=== PATIENT | male | born 1950 | race Caucasian/White ===

== ENCOUNTER 2018-08-02 16:23 | Inpatient (IN) | payer MEDICARE, MEDICAID ==
[~2018-08-02] VITALS: Ht 172.7 cm; Wt 95.3 kg
[~2018-08-02 16:23] MED LIST: Aspirin PO; LISI-603 PO; OXYC30TA2 PO; PREG300C PO; TAMS-12 PO
--- NOTE | 2018-08-02 16:23 | NUR ---
PT BIBRA FROM HOME C/O L HIP PAIN S/P FALL TODAY, PT IS AAOX4, NOT IN RESPIRATORY DISTRESS, V/S STABLE, KEPT RESTED AND COMFORTABLE, WILL CONTINUE TO MONITOR.
--- NOTE | 2018-08-02 16:35 | NUR ---
PT SEEN AND EXAMINED BY DR. MEDRANO.
--- NOTE | 2018-08-02 16:50 | NUR ---
WHEELED TO RADIOLOGY FOR XRAY.
--- NOTE | 2018-08-02 17:20 | NUR ---
IV LINE ESTABLISHED LABS DRAWNED AND SENT TO LAB.
[2018-08-02 17:22] LABS: BASOPHILS # (AUTO) 0.1 /CMM (0.0-0.2); BASOPHILS % (AUTO) 0.7 % (0.0-2.0); EOSINOPHILS % (AUTO) 0.3 % (0.0-6.0); HEMATOCRIT 31 % (39-51); HEMOGLOBIN 10.2 g/dL (13.5-17.5); LYMPHOCYTES # (AUTO) 1.1 /CMM (0.8-4.8); LYMPHOCYTES % (AUTO) 10.2 % (20.0-44.0); MEAN CORPUSCULAR HGB CONC 33 g/dl (31.0-36.0); MEAN CORPUSCULAR VOLUME 85 fL (80-96); MONOCYTES # (AUTO) 0.6 /CMM (0.1-1.30); MONOCYTES % (AUTO) 5.5 % (2.0-12.0); NEUTROPHILS # (AUTO) 9.2 /CMM (1.8-8.9); NEUTROPHILS % (AUTO) 83.3 % (43.0-81.0); PLATELET COUNT (AUTO) 415 /CMM (150-450); RED BLOOD CELL COUNT(AUTO) 3.65 MIL/uL (4.5-6.0); WHITE BLOOD COUNT (AUTO) 11.1 K/uL (4.3-11.0)
[2018-08-02 17:29] LABS: CALCIUM, SERUM 8.7 mg/dL (8.5-10.1); CREATININE 1.3 mg/dL (0.6-1.3); POTASSIUM 4.4 mmol/L (3.5-5.1)
[2018-08-02] MEDS ORDERED: HYDROMORPHONE 1 MG/1 ML DISP.SYRIN IV ONE (17:30)
[2018-08-02] MEDS ORDERED: ONDANSETRON HCL/PF - ER 4 MG/2 ML VIAL IV ONE (17:30)
[2018-08-02] MEDS ORDERED: HYDROMORPHONE 1 MG/1 ML DISP.SYRIN ONE (17:36)
[2018-08-02] MEDS ORDERED: ONDANSETRON HCL/PF 4 MG/2 ML VIAL ONE (17:36)
--- NOTE | 2018-08-02 18:15 | NUR ---
LAMINATION OPERATOR AT BEDSIDE FOR XRAY.
--- NOTE | 2018-08-02 18:50 | NUR ---
CHRISTOPHER AT BEDSIDE FOR EVAL.
[2018-08-02] MEDS ORDERED: MAG HYDROX/AL HYDROX/SIMETH 30 ML UDC PO PRN (19:00)
[2018-08-02] MEDS ORDERED: ONDANSETRON HCL/PF 4 MG/2 ML VIAL IVP PRN (19:00)
[2018-08-02] MEDS ORDERED: HYDROCODONE/APAP 5/325MG 1 EACH TABLET PO PRN (19:00)
[2018-08-02] MEDS ORDERED: MAGNESIUM HYDROXIDE 30 ML UDC PO PRN (19:00)
[2018-08-02] MEDS ORDERED: ACETAMINOPHEN 325 MG TABLET PO PRN (19:00)
[2018-08-02] MEDS ORDERED: Z GUARD REMEDY 2 OZ OINT TP PRN (19:00)
--- NOTE | 2018-08-02 19:17 | NUR ---
REPORT GIVEN TO YARITZA WATT FOR ANN.
--- NOTE | 2018-08-02 20:14 | NUR ---
REPORT GIVEN TO YARITZA GUZMÁN FOR ANN
[2018-08-02 21:00] VITALS: BP 133/60
--- NOTE | 2018-08-02 21:00 | NUR ---
RECEIVED PT IN BED AWAKE AND ALERT W/ AT THE BED SIDE. BREATHING EVENLY. NO SOB. NAD. SKIN WARM AND DRY . W/ ONGOING C/O L HIP PAIN. VSS. MEDICAL HISTORY WERE OBTAINED FROM THE PT AND THE . ALL NEEDS ATTENDED. BED LOW LOCKED. SRX2. CALL LIGHT WITHIN REACH. WILL CONT TO MONITOR AND WILL F/U WITH MD'S ORDERS.
[2018-08-02] MEDS: HYDROMORPHONE INJ 2 MG/ML DISP.SYRIN IV PRN (22:20)
--- NOTE | 2018-08-02 22:20 | NUR ---
DILAUDID 1MG GIVEN ORDERED PER PT'S REQUEST FOR C/O L HIP PAIN , WILL CONT TO MONITOR
[2018-08-02] MEDS: IV NS 0.9% 1,000 ML IV PRN (23:11)
[2018-08-03] VITALS (10 sets, daily range): BP systolic 127–159; BP diastolic 62–96
--- NOTE | 2018-08-03 01:58 | NUR ---
PT WITH C/O L HIP PAIN. NORCO 5-325MG WAS OFFERED. PT REFUSED. EXPLAINED TO THE PT THAT HE IS NOT DUE FOR ANOTHER DOSE OF DILAUDID. DR BUCHANAN MADE AWARE WITH A NEW ORDER FOR NORCO 10/325 Q6HRS PRN. NEW ORDER NOTED.
[2018-08-03] MEDS: HYDROMORPHONE INJ 2 MG/ML DISP.SYRIN IV PRN ×5 (02:30→17:52)
--- NOTE | 2018-08-03 02:30 | NUR ---
DILAUDID 1MG GIVEN ORDERED PER PT'S REQUEST FOR C/O SEVERE L HIP PAIN , WILL CONT TO MONITOR
[2018-08-03] MEDS: HYDROCODONE/APAP 10/325MG 1 EA TABLET PO PRN ×2 (05:06→16:46)
--- NOTE | 2018-08-03 05:43 | NUR ---
WITH C/O L HIP PAIN. NORCO 10 WITH A SIP OF WATER GIVEN. WILL CONT TO MONITOR ,
[2018-08-03 06:36] LABS: BASOPHILS % (AUTO) 0.3 % (0.0-2.0); EOSINOPHILS % (AUTO) 0.7 % (0.0-6.0); HEMATOCRIT 30 % (39-51); HEMOGLOBIN 10.2 g/dL (13.5-17.5); LYMPHOCYTES % (AUTO) 11.9 % (20.0-44.0); MEAN CORPUSCULAR HGB CONC 34 g/dl (31.0-36.0); MEAN CORPUSCULAR VOLUME 84 fL (80-96); MONOCYTES # (AUTO) 0.6 /CMM (0.1-1.30); MONOCYTES % (AUTO) 6.7 % (2.0-12.0); NEUTROPHILS # (AUTO) 6.9 /CMM (1.8-8.9); NEUTROPHILS % (AUTO) 80.4 % (43.0-81.0); PLATELET COUNT (AUTO) 374 /CMM (150-450); RED BLOOD CELL COUNT(AUTO) 3.61 MIL/uL (4.5-6.0); WHITE BLOOD COUNT (AUTO) 8.5 K/uL (4.3-11.0)
[2018-08-03 06:54] LABS: CALCIUM, SERUM 8.7 mg/dL (8.5-10.1); MAGNESIUM 1.7 mg/dL (1.8-2.4); PHOSPHORUS 2.9 mg/dL (2.5-4.9); POTASSIUM 4.1 mmol/L (3.5-5.1); THYROID STIMULATING HORMONE 0.892 uIU/mL (0.358-3.74)
--- NOTE | 2018-08-03 06:58 | NUR ---
PT IN BED AWAKE AND ALERT. BREATHING EVENLY. PAIN MEDICATIONS GIVEN ORDERED PER PT'S REQUEST. NEEDS ATTENDED. CLEANED AND DRIED. BED LOW LOCKED. CALL LIGHT WITHIN REACH. REPORT GIVEN TO YARITZA AGUIAR. FOR ANN.
--- NOTE | 2018-08-03 07:22 | NUR ---
MS RN OPENING NOTE RECEIVED PT IN BED, ALERT AND ORIENTED X4. DENIES CHEST PAIN, SOB, N/V. BREATHING IS EVEN AND UNLABORED ON ROOM AIR. PT IS HERE S/P FALL WITH LEFT HIP DISLOCATION. PER PT HE WAS SENT IN BY TO RECEIVE SURGERY TODAY HOWEVER PT IS NOT ON SCHEDULE FOR SURGERY AT THIS TIME, WILL FOLLOW UP WITH ORTHO GROUP. NEUROVASCULAR STATUS IS INTACT AT THIS TIME. RIGHT AC #18G IV IS INFUSING NS @ 75ML/HR WITHOUT REDNESS OR SWELLING. NPO STATUS MAINTAINED. ALL NEEDS ATTENDED TO. BED IS LOCKED AND IN LOWEST POSITION, SIDE RAILS UP X2, BED ALARM ON, CALL LIGHT WITHIN REACH.
[2018-08-03] MEDS ORDERED: TAMS-12 PO (08:22)
[2018-08-03] MEDS ORDERED: SENN-175 PO (08:22)
[2018-08-03] MEDS ORDERED: OXYC80TA40 PO (08:22)
[2018-08-03] MEDS ORDERED: ZOLP10TA6 PO (08:22)
[2018-08-03] MEDS ORDERED: TIZA4TAB4 PO (08:22)
[2018-08-03] MEDS: IV NS 0.9% 1,000 ML IV PRN (09:49)
--- NOTE | 2018-08-03 10:30 | NUR ---
MS RN NOTE 16F MENESES INSERTED ORDERED. PT TOLERATED PROCEDURE WELL.
[2018-08-03] MEDS ORDERED: ZOLPIDEM TARTRATE 10 MG TABLET PO PRN (11:00)
[2018-08-03] MEDS ORDERED: SENNOSIDES 8.6 MG TABLET PO PRN (11:00)
[2018-08-03] MEDS ORDERED: TIZANIDINE HCL 4 MG TABLET PO PRN (11:00)
[2018-08-03] MEDS: LISINOPRIL (20MG) 20 MG TABLET PO SCH (11:10)
[2018-08-03] MEDS ORDERED: PREGABALIN 100 MG CAPSULE PO SCH (11:30)
[2018-08-03] MEDS ORDERED: GLYCOPYRROLATE 0.2 MG/ML VIAL ONE ×2 (12:18→12:19)
[2018-08-03] MEDS ORDERED: ROCURONIUM BROMIDE 50 MG/5 ML ONE (12:19)
[2018-08-03] MEDS ORDERED: HYDROMORPHONE INJ 2 MG/ML DISP.SYRIN ONE (12:19)
--- NOTE | 2018-08-03 12:27 | NUR ---
MS RN PT OFF UNIT PT OFF UNIT FOR SURGERY. CONSENTS SIGNED AND PLACED IN CHART. OR CHECK LIST COMPLETED. RIGHT AC #18G IV IS PATENT, CLEAN , DRY AND INTACT. AT THE BEDSIDE.
[2018-08-03] MEDS ORDERED: BACITRACIN 50000 UNITS/VIAL ONE ×2 (13:14→13:26)
[2018-08-03] MEDS ORDERED: MEPERIDINE HCL/PF 100 MG/ML DISP.SYRIN ONE (14:06)
[2018-08-03] MEDS ORDERED: HYDROMORPHONE 1 MG/1 ML DISP.SYRIN ONE ×2 (14:24→14:55)
[2018-08-03] MEDS ORDERED: FENTANYL PF 100MCG/2ML AMPUL ONE (14:36)
[2018-08-03] MEDS ORDERED: MIDAZOLAM HCL 2 MG/2ML VIAL ONE (14:46)
--- NOTE | 2018-08-03 15:36 | NUR ---
MS RN NOTE PT BACK ON UNIT FROM SURGERY. POST OP ORDERS OBTAINED AND INITIATED. VS INITIATED PER PROTOCOL. PT A/OX4 AND REQUESTING PAIN MEDICATION AT THIS TIME.
--- NOTE | 2018-08-03 15:50 | NUR ---
MS RN NOTE HOME MEDICATION LYRICA OBTAINED AND DROPPED OFF AT PHARMACY PER PROTOCOL.
--- NOTE | 2018-08-03 15:56 | NUR ---
MS RN NOTE PER CHARLOTTE BRITT, FRANCHESKA OKAY FOR ONE TIME ORDER OF LYRICA 300MG PO
--- NOTE | 2018-08-03 16:41 | NUR ---
MS RN NOTE PER PHARMACY THEY WILL SEND LYRICA SHORTLY.
[2018-08-03] MEDS: LYRICA 300 MG PO SCH ×2 (16:46→21:00)
[2018-08-03] MEDS: Magnesium 1GM/D5W 100ML PREMIX 100 ML IV SCH ×2 (16:46→17:52)
--- NOTE | 2018-08-03 17:00 | NUR ---
MS RN NOTE PT REFUSING SCDS AT THIS TIME, RISKS AND BENEFITS EXPLAINED, PT STATES ITS UNCOMFORTABLE AND IS REFUSING AT THIS TIME.
[2018-08-03] MEDS: IV LR 1000 ML 1,000 ML IV PRN (18:23)
[2018-08-03] MEDS ORDERED: COLACE 250 MG CAPSULE PO PRN (18:30)
[2018-08-03] MEDS ORDERED: TYLENOL 650 MG TABLET PO PRN (18:30)
[2018-08-03] MEDS ORDERED: SENOKOT 8.6 MG TABLET PO PRN (18:30)
[2018-08-03] MEDS ORDERED: DULCOLAX 10 MG/SUPP.RECT RC PRN (18:30)
--- NOTE | 2018-08-03 18:30 | NUR ---
MS RN CLOSING NOTE PT IN BED, RESTING WITH EYES CLOSED AND EASILY AROUSABLE. PT IS A/OX4, DENIES CHEST PAIN, SOB, N/V. BREATHING IS EVEN AND UNLABORED ON ROOM AIR. PT IS STATUS POST REVISION OF LEFT HIP ARTHROPLASTY WITH TODAY. PT RATES PAIN 7/10 AT THE LEFT HIP, ADMINISTERED DILAUDID 1MG @ 1752 ORDERED. NEUROVASCULAR STATUS AT BASELINE. RIGHT AC #18G IV IS INFUSING ORDERED WITHOUT REDNESS OR SWELLING. MENESES CATHETER NOTED TO BE DRAINING CLEAR, YELLOW URINE. PT STILL REFUSING SCDS AT THIS TIME. ABDUCTOR PILLOW IN PLACE. ALL NEEDS ATTENDED TO. BED IS LOCKED AND IN LOWEST POSITION, SIDE RAILS UP X2, BED ALARM ON, CALL LIGHT AND POSSESSIONS WITHIN REACH.
--- NOTE | 2018-08-03 19:30 | NUR ---
MS/RN OPENING NOTES PT RECEIVED AWAKE, A/OX3. ON ROOM AIR, BREATHING EVEN AND UNLABORED. DENIES SOB, IN NO ACUTE DISTRESS. NOTES PAIN 10/22 TO LEFT HIP, S/P SURGERY TODAY. DRESSING C/D/I. PER PT -10/22 IS A TOLERABLE LEVEL OF PAIN AT THIS TIME. MENESES IN PLACE AND DRAINING TO GRAVITY. IV TO RAC PATENT AND INTACT RUNNING ORDERED. HOB SEMI FOWLERS. BED IN LOW/LOCKED POSITION WITH CALL LIGHT IN REACH. BILATERAL UPPER SIDE RAILS IN PLACE. WILL CONTINUE TO MONITOR
--- NOTE | 2018-08-03 19:48 | NUR ---
SPOKE TO PHARMACY, ASKED IF THEY WANT ME TO ADMINISTER 2100 LYRICA WHICH IS Q12H OR TO SKIP DOSE FOR TONIGHT. PER PHARMACY, CHARLOTTE BRITT NP WANTS TO ADMINISTER 2100 DOSE. PHARMACY WITH WRITE A NOTE ON HER END WELL REGARDING THIS.
[2018-08-03] MEDS: HYDROMORPHONE 1 MG/1 ML DISP.SYRIN IV PRN ×2 (20:50→23:54)
--- NOTE | 2018-08-03 20:52 | NUR ---
MS/RN NOTES PT C/O 12/22 LEFT HIP PAIN. ADMINISTERED PRN DILAUDID ORDERED. SCD PUMPS TURNED ON
--- NOTE | 2018-08-03 20:57 | NUR ---
PT LAYING ON SIDE, ABDUCTOR PILLOW OUT OF POSITION. ATTEMPTED TO REPOSITION AND ADJUST ABDUCTOR PILLOW. PT REFUSING SAYING HE IS ALREADY IN "TOO MUCH PAIN". EDUCATED ON RISKS/BENEFITS OF PROPER POSITIONING/ALIGNMENT WITH ABDUCTOR PILLOW FOR HEALING HOWEVER PT BECOMING AGITATED AND REFUSING TO BE TOUCHED AT THIS TIME.
--- NOTE | 2018-08-03 21:29 | NUR ---
Spoke with patient, he is alert and pleasant. S/p left hip with revision left total hip arthroplasty done today. States he lives at home with his in a single level home in [place]. His grandson lives next door who can assist patient as needed. Prior to admission, he was ambulating with a walker. He has DME from previous hip surgery - walker, shower chair and wheelchair. Patient does not want SNF placement. He prefer to return home with homehealth once discharge. His will provide ride. Addendum: 08/03/18 at 2130 by RAMYA BOWMAN RN Amended: Links added.
[2018-08-03] MEDS: ANCEF 1 G in IV D5W 50 ML IV SCH (21:57)
--- NOTE | 2018-08-03 22:26 | NUR ---
SPOKE TO [facility], NORY REGARDING LYRICA. PER NORY, TOO SOON TO ADMINISTER AND NO NOTES WERE MADE FROM IN HOUSE PHARMACY VERIFYING OKAY TO GIVE 2100 DOSE. PT AT RISK FOR TOXICITY IF ADMINISTERED NOW AND RECOMMENDED TO HOLD DOSE AT THIS TIME.
[2018-08-03] MEDS: HYDROCODONE/APAP 5/325MG 1 EACH TABLET PO PRN (22:53)
--- NOTE | 2018-08-03 23:57 | NUR ---
PT WITH C/O 8/10 PAIN TO LEFT HIP. ADMINISTERED PRN DILAUDID ORDERED. ASKED TO CHARGE BLACK IPHONE AT NURSING STATION. NO OTHER NEEDS EXPRESSED AT THIS TIME. REFUSED TO REPOSITION. WILL CONTINUE TO MONITOR
--- NOTE | 2018-08-04 00:04 | NUR ---
PT REFUSING TO HAVE SCD'S ON AT THIS TIME DESPITE EDUCATION OF RISKS/BENEFITS X3. WILL REPLACE SCD PUMPS PT PERMITS.
--- NOTE | 2018-08-04 01:17 | NUR ---
PT C/O NAUSEA. OBTAINED ORDER FROM DR. BUCHANAN FOR ZOFRAN 4MG IV Q6H PRN. ADMINISTERED ORDERED. PT REPOSITIONED AND ABDUCTOR PILLOW ADJUSTED TO PROPER POSITION. NO OTHER NEEDS EXPRESSED AT THIS TIME.
[2018-08-04] MEDS ORDERED: ONDANSETRON HCL/PF 4 MG/2 ML VIAL IV PRN ×2 (01:30→09:00)
[2018-08-04] MEDS: HYDROMORPHONE 1 MG/1 ML DISP.SYRIN IV PRN ×3 (02:45→07:10)
[2018-08-04] MEDS: ANCEF 1 G in IV D5W 50 ML IV SCH (05:12)
[2018-08-04] MEDS: IV LR 1000 ML 1,000 ML IV PRN ×2 (05:12→15:44)
--- NOTE | 2018-08-04 06:47 | NUR ---
MS/RN CLOSING NOTES PT OPENS EYES SPONTANEOUSLY. REMAINS ON ROOM AIR, BREATHING EVEN AND UNLABORED. DENIES SOB. IN NO ACUTE DISTRESS. PAIN TOLERABLE AT 6/10 TO LEFT HIP. DRESSING REMAINS C/D/I. ABDUCTOR PILLOW IN PROPER ALIGNMENT. IV TO RAC PATENT AND INTACT RUNNING IVF ORDERED. MENESES IN PLACE AND DRAINING TO GRAVITY. PRN PAIN MEDS ADMINISTERED ORDERED. KEPT PT COMFORTABLE POSSIBLE. TURNED/REPOSITIONED PT TOLERATED. PT REFUSING SCD PUMPS AT THIS TIME. HOB ELEVATED. BILATERAL UPPER SIDE RAILS IN PLACE. ENCOURAGED PO INTAKE TOLERATED. REPORTS POOR APPETITE AND SOME NAUSEA WHICH HAS RESOLVED NOW. NO SIGNIFICANT CHANGES OVERNIGHT. ALL NEEDS MET. BED REMAINS IN LOW/LOCKED POSITION WITH CALL LIGHT IN REACH. WILL ENDORSE TO DAY SHIFT YARITZA JUAREZ. Addendum: 08/04/18 at 0706 by PADILLA AVUGHAN RN IPHONE RETURNED TO PT
--- NOTE | 2018-08-04 07:15 | NUR ---
RN NOTES PATIENT A/OX3, BREATHING EVEN AND UNLABORED, NO SOB NOTED, ABDUCTOR PILLOW IN PLACED. PATIENT REFUSING TO HAVE SCD BECAUSE IT IRRITATES HIM. EXPLAINED TO PATIENT IMPORTANCE OF TURNING AND REPOSITIONING EVERY 2 HOURS, FOR SKIN MANAGEMENT. PATIENT VERBALIZED UNDERSTANDING. NEEDS ATTENDED, CALL LIGHT WITHIN REACH, WILL CONTINUE TO MONITOR.
[2018-08-04 07:32] LABS: BASOPHILS % (AUTO) 0.3 % (0.0-2.0); EOSINOPHILS % (AUTO) 0.1 % (0.0-6.0); HEMATOCRIT 27 % (39-51); HEMOGLOBIN 8.9 g/dL (13.5-17.5); LYMPHOCYTES # (AUTO) 1.3 /CMM (0.8-4.8); LYMPHOCYTES % (AUTO) 11.2 % (20.0-44.0); MEAN CORPUSCULAR HGB CONC 33 g/dl (31.0-36.0); MEAN CORPUSCULAR VOLUME 84 fL (80-96); MONOCYTES # (AUTO) 0.8 /CMM (0.1-1.30); MONOCYTES % (AUTO) 7.3 % (2.0-12.0); NEUTROPHILS # (AUTO) 9.3 /CMM (1.8-8.9); NEUTROPHILS % (AUTO) 81.1 % (43.0-81.0); PLATELET COUNT (AUTO) 339 /CMM (150-450); RED BLOOD CELL COUNT(AUTO) 3.23 MIL/uL (4.5-6.0); WHITE BLOOD COUNT (AUTO) 11.4 K/uL (4.3-11.0)
[2018-08-04 07:38] LABS: CALCIUM, SERUM 8.8 mg/dL (8.5-10.1); CREATININE 1.1 mg/dL (0.6-1.3); POTASSIUM 4.6 mmol/L (3.5-5.1)
[2018-08-04 08:00] VITALS: BP 129/72
--- NOTE | 2018-08-04 08:15 | NUR ---
RN NOTES ENDORSED TO FELIPE VIGIL FOR CONTINUITY OF CARE.
[2018-08-04] MEDS: TAMSULOSIN 0.4 MG CAP.SR.24H PO SCH (08:29)
[2018-08-04] MEDS: LISINOPRIL (20MG) 20 MG TABLET PO SCH (08:30)
[2018-08-04] MEDS: LYRICA 300 MG PO SCH ×2 (08:31→21:31)
[2018-08-04] MEDS: HYDROCODONE/APAP 5/325MG 1 EACH TABLET PO PRN (08:39)
[2018-08-04] MEDS ORDERED: CLONIDINE HCL 0.1 MG TABLET PO PRN (09:00)
[2018-08-04] MEDS ORDERED: HYDROMORPHONE MDV 30 MG in IV NS 0.9% 15 ML, PCA TOTAL VOLUME 1 BAG IV PRN ×6 (09:00→09:30)
[2018-08-04] MEDS ORDERED: diphenhydrAMINE HCL 25 MG CAPSULE PO PRN (09:00)
[2018-08-04] MEDS ORDERED: oxyCODONE IR immediate release 5 MG PO PRN (09:00)
[2018-08-04] MEDS ORDERED: MAG HYDROX/AL HYDROX/SIMETH 30 ML UDC PO PRN (09:00)
[2018-08-04] MEDS: FAMOTIDINE (20 MG) 20 MG TABLET PO SCH ×2 (09:25→21:29)
[2018-08-04] MEDS: DOCUSATE SODIUM 100 MG CAPSULE PO SCH ×2 (09:25→16:25)
[2018-08-04] MEDS: oxyCODONE HCL SR 20MG TAB.SR.12H PO SCH ×3 (09:26→21:31)
[2018-08-04] MEDS: SENNOSIDES 8.6 MG TABLET PO SCH ×2 (09:27→16:25)
[2018-08-04] MEDS ORDERED: NALOXONE HCL 0.4 MG/ML AMPUL IV PRN (09:30)
[2018-08-04] MEDS ORDERED: KEY,NONCONTROL,TO KEEP IN PYXI 1 EA MC ONE ×2 (11:21→14:20)
[2018-08-04 15:39] VITALS: BP 129/72
[2018-08-04 16:00] VITALS: BP 109/60
[2018-08-04] MEDS: RIVAROXABAN 10 MG TABLET PO SCH (16:26)
[2018-08-04] MEDS ORDERED: PREGABALIN 25 MG CAPSULE PO SCH (17:00)
--- NOTE | 2018-08-04 18:06 | NUR ---
CLOSING PT OPENS EYES SPONTANEOUSLY. REMAINS ON ROOM AIR, BREATHING EVEN AND UNLABORED. DENIES SOB. IN NO ACUTE DISTRESS. PAIN TOLERABLE AT 2/10 TO LEFT HIP. DRESSING REMAINS C/D/I. ABDUCTOR PILLOW IN PROPER ALIGNMENT. IV TO RAC CHAUFFEUR MOTORBUS DILAUDID AND L WRIST PATENT AND INTACT RUNNING IVF RINGER'S LACTATE AT 100ML/HR ORDERED. MENESES D'C'D PAIN MEDS ADMINISTERED ORDERED PER MD ESTEVES. KEPT PT COMFORTABLE POSSIBLE. TURNED/REPOSITIONED PT TOLERATED. PT ON SCD PUMPS AT THIS TIME. HOB ELEVATED. BILATERAL UPPER SIDE RAILS IN PLACE. ENCOURAGED PO INTAKE TOLERATED. PT EATING WELL ALL NEEDS MET. BED REMAINS IN LOW/LOCKED POSITION WITH CALL LIGHT IN REACH. WILL ENDORSE TO PM SHIFT RN
--- NOTE | 2018-08-04 19:15 | NUR ---
MASTER RIGGER hand off Dilaudid on demand. 1914 25.6 mg left in bag. On demand 0.4 Bolus q 15mins. O2 [id number]% resp even and unlabored. Denies of any distress.
--- NOTE | 2018-08-04 19:16 | NUR ---
LANDSCAPE ARCHITECTURE PROFESSOR HAND OFF BEGINNING VOLUME 30 ML TOTAL GIVEN 4.4 ML 25.6 ML LEFT.
[2018-08-04 20:00] VITALS: BP 100/59
[2018-08-05] MEDS: AMBIEN 5 MG TABLET PO PRN ×2 (01:05→23:08)
[2018-08-05] MEDS ORDERED: oxyCODONE HCL SR 20MG TAB.SR.12H PO ONE ×3 (05:20→05:24)
[2018-08-05] MEDS: oxyCODONE HCL SR 20MG TAB.SR.12H PO SCH ×3 (05:31→22:19)
--- NOTE | 2018-08-05 05:41 | NUR ---
Note: Oxycodone 80mg sr scheduled dose for 5am No enough oxycodone here on the floor Notified Charge Nurse . Told to go to 1st floor [facility] to slat pickler the medication. Charge nurse from [facility] removed the Oxycodone 20mg one at a time x2 then on third time was able to remove 40mg by changing the amount. When I administered the Oxcodone 80mg 3 20 mg Oxycodone were highlighted to administered along with my prior order of Oxcodone 80mg at 0500. This is the order I administered from. Notified Charge Nurse. I was given the [facility] [phone]. After explaining what happened to the Rx he stated chart what happen in the chart. Fyi currently the three Oxcodone are stilll highlighted to give.
[2018-08-05] MEDS ORDERED: KEY,NONCONTROL,TO KEEP IN PYXI 1 EA MC ONE ×4 (06:43→16:05)
--- NOTE | 2018-08-05 06:54 | NUR ---
Lying in bed resting comfortably on r/a Cont Pulse oxy 99% Abd pillow between pts legs and strapped. Left hip dressing C/D/I/ Diludid RETAIL OFFICE ASSOCIATE cont infusing on demand without difficulty L.R. infusing at 100 cc hrto R AC. pt able to void in urinal after 200 after yesterday F/c d/c. Siderail up Call light and housekeeper pump within reach. Slept 4.5 hour after being given ambien at 0100.
--- NOTE | 2018-08-05 07:59 | NUR ---
MS RN OPENING NOTES RECEIVED PT IN BED, AWAKE, A/O X4. HOB ELEVATED. TOLERATING RA, WITH NO ACUTE SIGNS OF RESPIRATORY DISTRESS. DENIES PAIN AT THIS MOMENT. IVF LR AT 100 ML/HR TO RAC G18, INTACT AND INFUSING WELL. MEASURER MACHINE DILAUDID 0.4MG WITH LOCKOUT 12 MINS AND 1HR LIMIT 2MG NOTED WELL. PT ABLE TO URINATE ON THE URINAL. ABDUCTOR PILLOW BETWEEN LEGS IN PLACE NOTED. PT HAS NO CONCERNS OR QUESTIONS AT THIS TIME. AND STATED HE WANTS TO GO HOME TODAY WELL IF HE CAN. PT'S BED KEPT IN LOWEST LOCKED POSITION WITH SR X2. WILL CONTINUE PLAN OF CARE.
[2018-08-05 08:00] VITALS: BP 112/60
[2018-08-05] MEDS: SENNOSIDES 8.6 MG TABLET PO SCH ×2 (08:42→16:08)
[2018-08-05] MEDS: FAMOTIDINE (20 MG) 20 MG TABLET PO SCH ×2 (08:42→22:20)
[2018-08-05] MEDS: LISINOPRIL (20MG) 20 MG TABLET PO SCH (08:43)
[2018-08-05] MEDS: TAMSULOSIN 0.4 MG CAP.SR.24H PO SCH (08:43)
[2018-08-05] MEDS: DOCUSATE SODIUM 100 MG CAPSULE PO SCH ×2 (08:46→16:08)
[2018-08-05] MEDS: LYRICA 300 MG PO SCH ×2 (09:14→22:00)
--- NOTE | 2018-08-05 10:30 | NUR ---
MS RN NOTES PAIN MANAGEMENT MD DR. ESTEVES CAME, SAW AND EVALUATED PT. MD ORDERED TO DISCONTINUE ECHOCARDIOGRAPHER PUMP. PT STATED HE DOESN'T WANT TO USE IT ANYMORE. HE WANTS TO START IT WITH PRN PO MEDICATIONS. MD WAS OKAY AND KEPT PRN OXYCONTIN IR AND ATC OXYCODONE CR FOR PAIN MANAGEMENT. PT AWARE AND AGREED WITH THE PLAN. WILL CONTINUE TO MONITOR.
[2018-08-05] MEDS: oxyCODONE IR immediate release 5 MG PO PRN ×2 (10:33→19:55)
--- NOTE | 2018-08-05 14:45 | NUR ---
MS RN NOTES PT WORKED WITH PHYSICAL THERAPIST, AMBULATED 300 FT WITH FWW AND CLOSE CONTACT. PT WITH BRP. WEIGHT BEARING TOLERATED. PT ABLE TO USE URINAL AND BEDSIDE COMMODE IF NECESSARY.
[2018-08-05 16:00] VITALS: BP 111/70
[2018-08-05] MEDS: RIVAROXABAN 10 MG TABLET PO SCH (16:14)
--- NOTE | 2018-08-05 18:32 | NUR ---
MS RN CLOSING NOTES PT RESTING IN BED. AWAKE, A/O X4. TOLERATING RA, WITHOUT SOB, O2 SATURATION OF 99-100%. DENIES PAIN AT THIS MOMENT. PIV TO RAC G18 SL, FLUSHED WITH NS INTACT AND OPERATIONAL. ABDUCTOR PILLOW BETWEEN LEGS IN PLACED. ALL NEEDS AND CARE PROVIDED. PT ABLE TO MAKE NEEDS KNOWN. FLUID AND CALL LIGHT KEPT WITHIN REACH. PT'S BED IN LOWEST, LOCKED POSITION WITH SR X2. WILL ENDORSE TO INCOMING NASCAR RACER NURSE FOR ANN.
--- NOTE | 2018-08-05 20:10 | NUR ---
RN OPENING NOTES RECEIVED PATIENT IN BED. AWAKE A/O X4. NO FORM OF RESPIRATORY DISTRESS, RESPIRATIONS EVEN AND UNLABORED. DENIES SHORTNESS OF BREATH. DENIES PAIN AT THIS TIME. SAFETY PRECAUTIONS IMPLEMENTED. CALL LIGHT WITHIN REACH. WILL CONTINUE TO MONITOR PATIENT THROUGHOUT THE SHIFT.
[2018-08-05 20:12] VITALS: BP 137/78
--- NOTE | 2018-08-05 23:20 | NUR ---
RN NOTES PATIENT REQUESTED ALYSSA PIERREN FOR SLEEP.
[2018-08-06] MEDS: oxyCODONE HCL SR 20MG TAB.SR.12H PO SCH (06:17)
--- NOTE | 2018-08-06 06:39 | NUR ---
RN CLOSING NOTES PATIENT IS IN BED, RESTING. NO FORM OF RESPIRATORY DISTRESS, RESPIRATIONS EVEN AND UNLABORED. DENIES SHORTNESS OF BREATH. DENIES PAIN AT THIS TIME. SAFETY PRECAUTIONS IMPLEMENTED. CALL LIGHT WITHIN REACH. WILL ENDORSE TO ONCOMING AM SHIFT.
[2018-08-06 08:00] VITALS: BP 123/67
--- NOTE | 2018-08-06 08:18 | NUR ---
MS RN NOTES PATIENT IN BED RESTING NO SOB OR ACUTE DISTRESS NOTED. PATIENT ALERT, ORIENTED X3. PAIN IS WELL CONTROLLED WITH MEDICATION. BED IN LOW LOCKED POSITION. BED IN LOW LOCKED POSITION. WILL CONTINUE TO MONITOR.
[2018-08-06] MEDS: oxyCODONE IR immediate release 5 MG PO PRN (09:45)
[2018-08-06] MEDS: DOCUSATE SODIUM 100 MG CAPSULE PO SCH (09:48)
[2018-08-06] MEDS: TAMSULOSIN 0.4 MG CAP.SR.24H PO SCH (09:48)
[2018-08-06 09:49] VITALS: BP 123/67
[2018-08-06] MEDS: FAMOTIDINE (20 MG) 20 MG TABLET PO SCH (09:49)
[2018-08-06] MEDS: LISINOPRIL (20MG) 20 MG TABLET PO SCH (09:49)
[2018-08-06] MEDS: SENNOSIDES 8.6 MG TABLET PO SCH (09:50)
[2018-08-06] MEDS: LYRICA 300 MG PO SCH (09:53)
[2018-08-06] MEDS ORDERED: DOCU-270 PO (11:38)
[2018-08-06] MEDS ORDERED: RIVA10TA PO (11:38)
--- NOTE | 2018-08-06 13:45 | NUR ---
MS RN NOTES PATIENT DISCHARGED TO HOME WITH HOME HEALTH. DISCHARGE INSTRUCTIONS PROVIDED VERBALIZED UNDERSTANDING. PATIENT ALERT, ORIENTED X3. PATIENT REFUSED DISCHARGE PICTURES. ALL BELONGINGS ACCOUNTED FOR, BELONGING LIST SIGNED. DISCHARGE EDUCATION PROVIDED TO PATIENT AND . PRESCRIPTION PROVIDED TO PATIENT. PERIPHERAL IV REMOVED WITH MINIMAL BLEEDING. ID BAND REMOVED. PATIENT STATES HE HAS HIS WALKER IN THE CAR. PATIENT ESCORTED TO CAR BY TRACK REPAIRER.
--- NOTE | 2018-08-06 14:12 | NUR ---
ASSESSMENT PERFORMED IN THE MORNING AT 10 AM. Addendum: 08/06/18 at 1413 by IWONA MONTOYA RN Amended: Links added.
== END 2018-08-06 13:45 | disposition home health service (06) | DRG 468 ==
LOC: ER 16:23 → MEDSG2 20:03 → MED 08-04 17:48
PROVIDERS: ADMIT Nurse Practitioner Acute Care; ATTEND Nurse Practitioner Acute Care
PROC: 0SRS0JZ Replacement of Left Hip Joint, Femoral Surface with Synthetic Substitute, Open Approach (ICD-10-PCS; principal; 2018-08-02)
PROC: 0SPS0JZ Removal of Synthetic Substitute from Left Hip Joint, Femoral Surface, Open Approach (ICD-10-PCS; 2018-08-02)
DX: T84.021A Dislocation of internal left hip prosthesis, initial encounter (principal); E11.9 Type 2 diabetes mellitus without complications; D72.829 Elevated white blood cell count, unspecified; E78.5 Hyperlipidemia, unspecified; M16.11 Unilateral primary osteoarthritis, right hip; Y79.2 Prosthetic and other implants, materials and accessory orthopedic devices associated with adverse incidents; Y92.009 Unspecified place in unspecified non-institutional (private) residence as the place of occurrence of the external cause; D64.9 Anemia, unspecified; E66.9 Obesity, unspecified; Z68.31 Body mass index [BMI] 31.0-31.9, adult; M19.90 Unspecified osteoarthritis, unspecified site; G89.29 Other chronic pain; G62.9 Polyneuropathy, unspecified; I10 Essential (primary) hypertension; N40.0 Benign prostatic hyperplasia without lower urinary tract symptoms; W07.XXXA Fall from chair, initial encounter; E78.00 Pure hypercholesterolemia, unspecified; G47.00 Insomnia, unspecified; M81.0 Age-related osteoporosis without current pathological fracture; Z96.652 Presence of left artificial knee joint
CPT/HCPCS: 36415; 71045-TC; 73020; 80048-TC; 80061-TC; 83735-TC; 84100-TC; 84443-TC; 85025-TC; 85610-TC; 85730-TC; 86850-TC; 87081-TC; 94760-TC; 97110-TC; 97116-TC; 97530-TC; A4216; A4217; A6402; G0378; J0690; J1100; J1170; J2175; J2250; J2310; J2405; J2704; J2710; J3010; J3475; J3490; J7030; J7060; J7120

== ENCOUNTER 2018-08-08 05:27 | Inpatient (IN) | payer MEDICARE, MEDICAID ==
[~2018-08-08] VITALS: Ht 172.7 cm; Wt 88.5 kg
[~2018-08-08 05:27] MED LIST changes: -Aspirin PO; +DOCU-270 PO; +OXYC80TA40 PO; +RIVA10TA PO; +SENN-175 PO; +TIZA4TAB4 PO; +ZOLP10TA6 PO
[2018-08-08] MEDS ORDERED: ONDANSETRON HCL/PF 4 MG/2 ML VIAL IV PRN (10:00)
[2018-08-08] MEDS ORDERED: MORPHINE SULFATE INJ 2 MG/ML DISP.SYRIN IV PRN (10:00)
--- NOTE | 2018-08-08 10:00 | NUR ---
RN SHIFT NOTE RECEIVED PATIENT DIRECT ADMIT FROM HOME, FALL L HIP DISLOCATION. RE ADMIT TO HOSPITAL , RECENT SURGICAL PROCEDURE WITHIN 7 DAYS, 4TH TIME PATIENT HAS FALLEN ACCORDING TO HIMSELF. VITALS STABLE, PAIN IS REPORTED 10 OUT OF 10. TRANSPORT ENDORSED PAIN MEDICATION GIVEN AT 0730. GAVE MORPHINE PAIN STILL NOT MANAGED, SPOKE TO DOCTOR HE ORDERED SECOND PAIN MEDICATION. RESPIRATIONS ARE WNL VITALS STABLE PATIENT ALERT AND ORIENTED, YELLING AND SCREAMING ABOUT PAIN. MD AWARE. SAFETY MEASURES IN PLACE.
--- NOTE | 2018-08-08 10:26 | NUR ---
notified ortho for consult spoke with shellie,will continue to ff.up.
--- NOTE | 2018-08-08 10:56 | NUR ---
patient c/o excruciating pain 10/ despite 2mg morphine given as ordered. also texted [facility] jail manager .dr. lynn made aware regarding pain and gave orders to increase to 4mg prn dose,will placed lamb since pt.c/o severe pain on legs when using urinals,will continue to ff.
[2018-08-08] MEDS: MORPHINE SULFATE INJ 4 MG/ML DISP.SYRIN IV PRN ×2 (11:06→15:16)
[2018-08-08 13:00] VITALS: BP 153/84
[2018-08-08] MEDS ORDERED: ZOLPIDEM TARTRATE 10 MG TABLET PO PRN (13:00)
[2018-08-08] MEDS ORDERED: ACETAMINOPHEN 650 MG/SUPP.RECT RC PRN (13:00)
[2018-08-08] MEDS ORDERED: Z GUARD REMEDY 2 OZ OINT TP PRN (13:00)
[2018-08-08] MEDS ORDERED: HYDROMORPHONE INJ 2 MG/ML DISP.SYRIN IV PRN (13:00)
[2018-08-08] MEDS ORDERED: ONDANSETRON HCL/PF 4 MG/2 ML VIAL IVP PRN (13:00)
[2018-08-08] MEDS ORDERED: TIZANIDINE HCL 4 MG TABLET PO PRN (13:00)
[2018-08-08] MEDS ORDERED: ZOLPIDEM TARTRATE 5 MG TABLET PO PRN (13:00)
--- NOTE | 2018-08-08 13:30 | NUR ---
RN NOTE DILAUDID WAS ORDERD 1MG EVERY 3 HOURS NEEDED PER MD. WAS UNABLE TO PULL IT FROM [facility], CHARGE NURSE AWARE AND CALLED PHARMACY, DID MEDICATION OVERRIDE. PATIENT TOLERATED WELL. HIGH PAIN TOLERARANCE, NO ADVERSE REACTIONS, MD AWARE.
[2018-08-08] MEDS ORDERED: HYDROMORPHONE 1 MG/1 ML DISP.SYRIN ONE ×4 (13:48→21:23)
--- NOTE | 2018-08-08 13:54 | NUR ---
PRN DILAUDID GIVEN SINCE PT. STILL IN EXCRUCIATING PAIN DESPITE MORPHINE GIVEN,PRN DILAUDID GIVEN ORDERED.
--- NOTE | 2018-08-08 13:56 | NUR ---
KAREN UNABLE TO SCAN PHARMACY MADE AWARE PER GARRETT OK TO GIVE.
[2018-08-08] MEDS: RIVAROXABAN 10 MG TABLET PO SCH (17:00)
[2018-08-08] MEDS: PREGABALIN 100 MG CAPSULE PO SCH (17:00)
--- NOTE | 2018-08-08 17:10 | NUR ---
SPOKE WITH CAS FROM PHARMACY IT IS OK TO OVERRIDE DILUADID, UNABLE TO SCAN THE MEDICATION BARCODE EITHER, CHARGE NURSE AWARE SPOKE TO PHARMACY . NO RESPIRATORY DISTRESS , PATIENT COMPLAINING OF PAIN 10/10.
[2018-08-08] MEDS ORDERED: HYDROMORPHONE INJ 2 MG/ML DISP.SYRIN IV ONE (18:30)
--- NOTE | 2018-08-08 18:57 | NUR ---
RN CLOSING NOTE PATIENT WILL BE TAKEN TO SURGERY FOR HIP DISLOCATION AT [address] RAMIREZ CAME BY AND SAW THE PATIENT, ORDERED ONE TIME DOSE PRIOR TO SURGERY FOR PAIN. PATIENT HAS CATHERTER IN PLACE DUE TO INABLITY TO CLEAN AND REPOSITON HIM AND INTENSE PAIN. CONSENTS SIGNED AND AWARE OF SURGERY THIS EVENING. CONT TO MONITOR.
--- NOTE | 2018-08-08 19:35 | NUR ---
RN Notes Received report from AM RN, patient was just picked up going to OR for closed reduction of Left total hip dislocation.
[2018-08-08 20:00] VITALS: BP 152/85
[2018-08-08] MEDS ORDERED: HYDROMORPHONE INJ 2 MG/ML DISP.SYRIN ONE (20:53)
[2018-08-08 21:00] VITALS: BP 152/85
[2018-08-08] MEDS ORDERED: FENTANYL PF 100MCG/2ML AMPUL ONE (21:12)
--- NOTE | 2018-08-08 21:40 | NUR ---
RN Notes Patient back from OR via hospital bed, awake, alert and oriented x4. Patient laying on his right side with left hip supported by a pillow. Verbalizing pain at 7/10, just had dilaudid 15 min ago per YOUTH PASTOR. Denies nausea and vomiting at this time. Madison cath intact to gravity. Per YOUTH PASTORground helper street railway was not done and will evaluate the patient again by Dr Cunha. Kept patient comfortable in bed, all needs attended. Will continue to monitor.
[2018-08-08] MEDS: HYDROMORPHONE INJ 2 MG/ML DISP.SYRIN IV PRN (22:18)
--- NOTE | 2018-08-08 22:18 | NUR ---
RN Notes Patient complaining of 10/10 pain on left hip, Dilaudid 1 mg given IVP. Will continue to monitor patient.
--- NOTE | 2018-08-08 23:51 | NUR ---
RN Notes Patient verbalizing difficulty falling asleep and asking for sleeping pill. Ambien 10 mg tab given PO with sips of water and tolerated well. Will continue to monitor patient.
[2018-08-09] VITALS (7 sets, daily range): BP systolic 120–154; BP diastolic 69–82
[2018-08-09] MEDS: MORPHINE SULFATE INJ 4 MG/ML DISP.SYRIN IV PRN ×5 (00:34→17:21)
--- NOTE | 2018-08-09 00:34 | NUR ---
RN Notes Received new order from Dr Rodriguez, Pain management consult for left hip pain. Noted and carried out.
--- NOTE | 2018-08-09 00:34 | NUR ---
RN Notes Patient complains of severe left hip pain 10/10, Morphine 4 mg given IVP, charge nurse aware. Will continue to monitor patient.
[2018-08-09] MEDS: HYDROMORPHONE INJ 2 MG/ML DISP.SYRIN IV PRN ×5 (02:32→21:51)
--- NOTE | 2018-08-09 02:32 | NUR ---
RN Notes Patient complaining of severe pain on his left hip,02/21. Dilaudid 1 mg given IVP. Will continue to monitor patient.
--- NOTE | 2018-08-09 04:34 | NUR ---
RN Notes Patient complains of severe pain on his left hip, 02/21. Morphine 4 mg given IVP. Will continue to monitor patient.
--- NOTE | 2018-08-09 06:04 | NUR ---
RN Notes Pain complains of severe left hip pain , 02/21. Dilaudid 1 mg given IVP. Will continue to monitor patient.
--- NOTE | 2018-08-09 07:05 | NUR ---
MS RN OPENING NOTES RECEIVED PT LYING ON BED.ALERT/ORIENTED X4.ON ROOM AIR,TOLERATING WELL.NO SOB AND ACUTE DISTRESS NOTED.FC IS IN PLACE WITH CLEAR YELLOW URINE.ON NPO,C/O NAUSEA AND PAIN ON LEFT HIP.IV LINE IS ON RIGHT AC,IV FLUID IS RUNNING WITH NS @75ML/HR.SITE IS CLEAN DRY AND INTACT.NO INFILTRATION NOTED.SAFETY IS MAINTAINED AT ALL TIMES.BED IS IN ,LOW POSITION AND LOCKED,CALL LIGHT IS WITHIN REACH.WILL CONTINUE TO MONITOR THE PT CLOSELY.
--- NOTE | 2018-08-09 07:21 | NUR ---
RN Notes Patient asleep, On room air and tolerated well. No signs of distress and discomfort noted at this time. Kept pain at tolerable level. Kept patient on NPO, denies nausea and vomiting. Madison cath intact. Patient laying on his right side with pillow support on his left hip. Safety measures and fall precaution observed. For pain management consult for left hip pain. Ortho to follow up. Endorsed to morning RN for continuity of care.
[2018-08-09] MEDS: PREGABALIN 100 MG CAPSULE PO SCH ×2 (08:42→17:21)
[2018-08-09] MEDS: TAMSULOSIN 0.4 MG CAP.SR.24H PO SCH (08:42)
[2018-08-09] MEDS: LISINOPRIL (20MG) 20 MG TABLET PO SCH (08:42)
[2018-08-09 08:44] LABS: BASOPHILS # (AUTO) 0.1 /CMM (0.0-0.2); BASOPHILS % (AUTO) 0.4 % (0.0-2.0); HEMATOCRIT 29 % (39-51); HEMOGLOBIN 9.9 g/dL (13.5-17.5); LYMPHOCYTES # (AUTO) 0.9 /CMM (0.8-4.8); LYMPHOCYTES % (AUTO) 7.1 % (20.0-44.0); MEAN CORPUSCULAR HGB CONC 34 g/dl (31.0-36.0); MEAN CORPUSCULAR VOLUME 82 fL (80-96); MONOCYTES # (AUTO) 0.7 /CMM (0.1-1.30); MONOCYTES % (AUTO) 5.2 % (2.0-12.0); NEUTROPHILS # (AUTO) 11.4 /CMM (1.8-8.9); NEUTROPHILS % (AUTO) 87.3 % (43.0-81.0); PLATELET COUNT (AUTO) 412 /CMM (150-450); RED BLOOD CELL COUNT(AUTO) 3.57 MIL/uL (4.5-6.0); WHITE BLOOD COUNT (AUTO) 13.1 K/uL (4.3-11.0)
[2018-08-09] MEDS: IV NS 0.9% 1,000 ML IV PRN ×2 (08:48→23:20)
[2018-08-09 08:50] LABS: CALCIUM, SERUM 8.6 mg/dL (8.5-10.1); PHOSPHORUS 2.9 mg/dL (2.5-4.9); POTASSIUM 3.5 mmol/L (3.5-5.1)
[2018-08-09] MEDS ORDERED: PANTOPRAZOLE 40 MG VIAL IV SCH (09:00)
[2018-08-09 09:03] LABS: THYROID STIMULATING HORMONE 0.898 uIU/mL (0.358-3.74)
--- NOTE | 2018-08-09 12:25 | NUR ---
MS RN NOTES CALLED DR.BOTTS [place]ROE OFFICE,ORTHOPEDIC SURGEON ,DIDN'T CYTOLOGY MANAGER THE PHONE LEFT THE MESSAGE.AWAITING FOR THE CALL BACK.
--- NOTE | 2018-08-09 14:30 | NUR ---
MS RN NOTES ASHLEY RICHARDS FOR ORTHOPEDICS CALLED AND SAID IN AM @0700 PLANNING TO DO REVISION OF LEFT HIP DISLOCATION BY .KEEP NPO MIDNIGHT,CONSENT WILL BE OBTAINED.NEW ORDERS NOTED AND CARRIED OUT.
--- NOTE | 2018-08-09 15:15 | NUR ---
MS RN NOTES CONSENT FOR THE PROCEDURE AND ANESTHESIA GET SIGNED BY SUMMER,RADHA.
[2018-08-09] MEDS: RIVAROXABAN 10 MG TABLET PO SCH (17:00)
--- NOTE | 2018-08-09 18:00 | NUR ---
MS RN NOTES TOMORROW AM PLANNING TO DO REVISION OF LEFT HIP DISLOCATION,HOLD ANKIT 10MG @0033.
--- NOTE | 2018-08-09 19:00 | NUR ---
MS RN CLOSING NOTES PT IS LYING ON BED,STILL C/O PAIN 8/10 ON LEFT HIP.CONTINUOS WITH IV PAIN MEDS.IV LINE IS IN PLACE.ON ROOM AIR,TOLERATING WELL.ENDORSED TO CASINO FLOOR WALKER RN FOR AM PROCEDURE AND NPO STATUS AFTER MIDNIGHT.
--- NOTE | 2018-08-09 19:20 | NUR ---
MS RN NOTE RECEIVED PT IN STABLE CONDITION A&O X4, ABLE TO MAKE NEEDS KNOWN. PT CURRENTLY AWAKE SPEAKING WITH GUEST IN ROOM. NO SIGNS OF SOB OR DISTRESS. MENESES CATH PATENT WITH ADEQUATE URINE DRAINING. IV ON THE L WRIST PATENT AND INTACT WITH IVF INFUSING, TOLERATING WELL. ALL CURRENT NEEDS ATTENDED TO. SAFETY PRECAUTIONS IN PLACE: BED LOW, LOCKED, UPPER RAILS UP, AND CALL LIGHT WITHIN REACH. WILL CONT. TO MONITOR.
--- NOTE | 2018-08-09 21:57 | NUR ---
MS RN NOTE PRN DILAUDID 1 MG GIVEN FOR PAIN 10/10 IN THE L HIP. WILL CONT TO MONITOR.
[2018-08-10] MEDS: MORPHINE SULFATE INJ 4 MG/ML DISP.SYRIN IV PRN (01:11)
[2018-08-10] MEDS: HYDROMORPHONE INJ 2 MG/ML DISP.SYRIN IV PRN ×2 (02:26→05:37)
[2018-08-10 04:00] VITALS: BP 133/72
[2018-08-10 04:20] LABS: BASOPHILS # (AUTO) 0.2 /CMM (0.0-0.2); BASOPHILS % (AUTO) 1.5 % (0.0-2.0); EOSINOPHILS % (AUTO) 0.8 % (0.0-6.0); HEMATOCRIT 28 % (39-51); HEMOGLOBIN 9.4 g/dL (13.5-17.5); LYMPHOCYTES # (AUTO) 1.3 /CMM (0.8-4.8); LYMPHOCYTES % (AUTO) 12.7 % (20.0-44.0); MEAN CORPUSCULAR HGB CONC 34 g/dl (31.0-36.0); MEAN CORPUSCULAR VOLUME 83 fL (80-96); MONOCYTES # (AUTO) 0.8 /CMM (0.1-1.30); MONOCYTES % (AUTO) 7.7 % (2.0-12.0); NEUTROPHILS % (AUTO) 77.3 % (43.0-81.0); PLATELET COUNT (AUTO) 361 /CMM (150-450); WHITE BLOOD COUNT (AUTO) 10.4 K/uL (4.3-11.0)
[2018-08-10 04:36] LABS: CALCIUM, SERUM 8.3 mg/dL (8.5-10.1); MAGNESIUM 1.9 mg/dL (1.8-2.4); PHOSPHORUS 3.2 mg/dL (2.5-4.9); POTASSIUM 3.6 mmol/L (3.5-5.1)
[2018-08-10] MEDS ORDERED: BACITRACIN 50000 UNITS/VIAL ONE (06:21)
[2018-08-10] MEDS ORDERED: ANESTHESIA TRAY IN PYXIS 1 EA TRAY MC ONE (06:21)
--- NOTE | 2018-08-10 06:24 | NUR ---
MS RN NOTE PT IN STABLE CONDITION A&O X4, ABLE TO MAKE NEEDS KNOWN. PT CURRENTLY AWAKE. NO SIGNS OF SOB OR DISTRESS. MENESES CATH PATENT WITH ADEQUATE URINE DRAINING. IV ON THE L WRIST PATENT AND INTACT WITH IVF INFUSING, TOLERATING WELL. PT. NPO SINCE MIDNIGHT. READY FOR SX. ALL CONSENTS SIGNED, CHECKLIST FINISHED. PAIN MANAGED THROUGHOUT SHIFT. ALL CURRENT NEEDS ATTENDED TO. SAFETY PRECAUTIONS IN PLACE: BED LOW, LOCKED, UPPER RAILS UP, AND CALL LIGHT WITHIN REACH. WILL CONT. TO MONITOR AND ENDORSE TO NEXT SHIFT FOR ANN.
--- NOTE | 2018-08-10 06:35 | NUR ---
MS RN NOTE PT. TAKEN TO SURGERY BY SX TEAM. PT WAS IN STABLE CONDITION. ALL CONSENTS AND CHECKLIST ALSO TAKEN.
[2018-08-10] MEDS ORDERED: HYDROMORPHONE INJ 2 MG/ML DISP.SYRIN ONE (06:56)
[2018-08-10] MEDS ORDERED: KETAMINE HCL (500MG/10ML) 50 MG/ML VIAL ONE (06:56)
[2018-08-10] MEDS ORDERED: ROCURONIUM BROMIDE 50 MG/5 ML ONE ×2 (06:56→07:34)
[2018-08-10] MEDS ORDERED: TRANEXAMIC ACID 3,000 MG in SODIUM CHLORIDE IRRIG SOLUTION 70 ML IR ONE (07:00)
--- NOTE | 2018-08-10 07:25 | NUR ---
RN OPENING NOTES PATIENT CURRENTLY IN OR.
[2018-08-10] MEDS ORDERED: HYDROMORPHONE 1 MG/1 ML DISP.SYRIN ONE ×3 (08:46→09:07)
[2018-08-10] MEDS ORDERED: MIDAZOLAM HCL 2 MG/2ML VIAL ONE (08:46)
[2018-08-10] MEDS ORDERED: FENTANYL PF 100MCG/2ML AMPUL ONE (08:56)
[2018-08-10] MEDS ORDERED: COLACE 250 MG CAPSULE PO PRN (09:30)
[2018-08-10] MEDS ORDERED: ZOFRAN 4mg/2ML IV PRN (09:30)
[2018-08-10] MEDS ORDERED: SENOKOT 8.6 MG TABLET PO PRN (09:30)
[2018-08-10] MEDS ORDERED: DULCOLAX 10 MG/SUPP.RECT RC PRN (09:30)
[2018-08-10] MEDS ORDERED: HYDROMORPHONE 1 MG/1 ML DISP.SYRIN IV PRN ×2 (09:30→10:00)
[2018-08-10] MEDS ORDERED: TYLENOL 650 MG TABLET PO PRN (09:30)
[2018-08-10] MEDS ORDERED: HYDROCODONE/APAP 5/325MG 1 EACH TABLET PO PRN (09:30)
[2018-08-10] MEDS ORDERED: HYDROMORPHONE MDV 30 MG in IV NS 0.9% 15 ML, PCA TOTAL VOLUME 1 BAG IV PRN ×3 (10:00)
[2018-08-10] MEDS ORDERED: HYDROMORPHONE IV PRN ×6 (10:00)
[2018-08-10] MEDS ORDERED: SODIUM CHLORIDE 0.9% IV PRN ×6 (10:00)
[2018-08-10] MEDS ORDERED: [UNRECOGNIZED DRUG - OTHER] IV PRN ×6 (10:00)
--- NOTE | 2018-08-10 10:00 | NUR ---
RN NOTE PATIENT CAME BACK FROM SURGERY. VITAL SIGNS WITHIN NORMAL LIMITS. DR ESTEVES CAME IN TO SEE THE PATIENT AND ORDERED MULTIPLE PAIN MEDICATIONS - INCLUDING WRECKING MECHANIC PUMP. PATIENT IN DISTRESS FOR PAIN, WILL GIVE HYDROMORPHONE IVP WE SET UP THE WRECKING MECHANIC PUMP. PATIENT ALERT AND ORIENTED X4. HAS A MENESES CATHETER ON GRAVITY WITH CLEAR AND YELLOW URINE. REGULAR DIET OF NOW. HAS A LEFT WRIST #24 AND RIGHT HAND #20 WITH NS RUNNING AT 75ML/HR. HAS AN ORDER OF LR AND WILL REPLACE IVF. BED IN LOW POSITION. CALL LIGHT WITHIN REACH. WILL CONTINUE TO MONITOR PATIENT.
[2018-08-10] MEDS ORDERED: HYDROMORPHONE HCL IV PRN (10:03)
[2018-08-10] MEDS ORDERED: NS 0.9% IV PRN (10:03)
[2018-08-10] MEDS ORDERED: KEY,NONCONTROL,TO KEEP IN PYXI 1 EA MC ONE ×2 (10:13→19:26)
[2018-08-10] MEDS ORDERED: ONDANSETRON HCL/PF 4 MG/2 ML VIAL IVP PRN (10:30)
[2018-08-10 10:41] VITALS: BP 152/98
[2018-08-10] MEDS ORDERED: MAG HYDROX/AL HYDROX/SIMETH 30 ML UDC PO PRN (11:00)
[2018-08-10] MEDS ORDERED: diphenhydrAMINE HCL 25 MG CAPSULE PO PRN (11:00)
[2018-08-10] MEDS: LISINOPRIL (20MG) 20 MG TABLET PO SCH (11:30)
[2018-08-10] MEDS: oxyCODONE HCL SR 20MG TAB.SR.12H PO SCH ×2 (11:30→21:05)
[2018-08-10] MEDS: PREGABALIN 100 MG CAPSULE PO SCH ×2 (11:30→17:19)
[2018-08-10] MEDS: TAMSULOSIN 0.4 MG CAP.SR.24H PO SCH (11:30)
--- NOTE | 2018-08-10 11:49 | NUR ---
RN NOTE PATIENT'S MORNING MEDS WAS GIVEN LATE DUE TO PATIENT JUST CAME BACK FROM SURGERY. PATIENT ON LEAF COVERER AND HAS AN ORDER OF OXYCODONE 80MG. PATIENT STATES HE IS STILL IN PAIN AND WANTS THE PAIN MEDICATION. ORDERED CONTINUOUS PULSE OX FROM THE RT TO MONITOR PATIENT'S OXYGEN SATURATION. BEFORE GIVING PAIN TABLETS - OXYGEN SAT WAS 100%.
[2018-08-10 12:00] VITALS: BP_SYST 131; BP_SYST 153; BP_DIAS 79; BP_DIAS 86
[2018-08-10] MEDS: IV LR 1000 ML 1,000 ML IV PRN ×2 (12:33→23:18)
--- NOTE | 2018-08-10 14:30 | NUR ---
RN NOTE SUPERVISOR COIL WINDING PUMP 2.7MG TOTAL
--- NOTE | 2018-08-10 15:30 | NUR ---
RN NOTE ' PATIENT ASKED FOR HIS OXY PRN. GAVE 12 TABLETS 60MG OF OXY. PAIN LEVEL 8/10
[2018-08-10] MEDS: oxyCODONE IR immediate release 5 MG PO PRN (15:31)
--- NOTE | 2018-08-10 15:53 | NUR ---
RN NOTE CALLED PHARMACY FOR PATIENT'S ANCEF AT 1510. TALKED TO [facility], SAID THEY WILL SEND IT. CALLED PHARMACY AGAIN AT 1550, THEY WILL SEND IT DANE
[2018-08-10 16:00] VITALS: BP 153/86
[2018-08-10] MEDS: DOCUSATE SODIUM 100 MG CAPSULE PO SCH (16:30)
[2018-08-10] MEDS: ANCEF 1 GM/50 ML D5W IV SCH ×4 (17:18→23:19)
[2018-08-10] MEDS: RIVAROXABAN 10 MG TABLET PO SCH (17:20)
--- NOTE | 2018-08-10 18:53 | NUR ---
RN CLOSING NOTE PATIENT AWAKE AND ALERT. HAD A HIP SURGERY IN THE MORNING. CAME BACK IN THE UNIT AT 1000. PATIENT ON SNUFF BLENDER PUMP. HAS OXYCODONE SCHEDULED Q8H LAST GIVEN WAS AT 1130. HAS OXYCODONE PRN LAST GIVEN AT 1531. PATIENT ATE LUNCH AND DINNER, REGULAR DIET. ON DVT PUMPS. NO COMPLAINS OF ANY DISTRESS AT THIS TIME. PAIN IS BEING CONTROLLED BY PAIN MEDS. ANCEF WAS GIVEN. ALL MEDS GIVEN. BED ON LOW POSITION. CALL LIGHT WITHIN REACH. WILL ENDORSE TO NOC SHIFT RN
[2018-08-10 20:00] VITALS: BP 130/70
--- NOTE | 2018-08-10 20:00 | NUR ---
TITLE I COORDINATOR NOTES RECEIVED PTS IN BED A/OX 3 , ON TELE SR ON THE MONITOR , NO SOB NO DISTRESS NOTED , V/S STABLE PTS ON DILAUDID SERVICE STATION MANAGER FOR PAIN MGT , NO ASE NOTED , NO COMPLAIN OF PAIN AT THIS TIME, DUE MEDS GIVEN ORDERED ALL NEEDS ATTENDED TOO , PTS ON IVF OF LR AT 100CC/HR WELL TOLERATED F/C IN SITU DRAINING WITH YELLOWISH URINE OUTPUT.KEPT PTS CLEAN DRY AND COMFORTABLE.
[2018-08-10] MEDS: FAMOTIDINE (20 MG) 20 MG TABLET PO SCH (21:05)
[2018-08-11] VITALS: BP_SYST 112; BP_SYST 129; BP_DIAS 65; BP_DIAS 81
--- NOTE | 2018-08-11 | NUR ---
SORT LINE NOTES DRESSING ON LEFT HIP DRY INTACT NO BLEEDING NOTED ,PTS COMFORTABLE IN BED
[2018-08-11] MEDS: oxyCODONE IR immediate release 5 MG PO PRN (01:23)
[2018-08-11] MEDS: oxyCODONE HCL SR 20MG TAB.SR.12H PO SCH ×3 (05:44→20:15)
--- NOTE | 2018-08-11 07:30 | NUR ---
BOND CLERK NOTES PT IN BED, AWAKE, ALERT AND ORIENTED, WITH COMPLAINT OF MILD PAIN AT LEFT HIP, PT ON DRIER TENDER PUMP, NOT IN DISTRESS, CALL LIGHT WITHIN REACH, ASSISTED WITH NEEDS, KEPT COMFORTABLE.
[2018-08-11 07:35] LABS: BASOPHILS % (AUTO) 0.2 % (0.0-2.0); EOSINOPHILS % (AUTO) 0.5 % (0.0-6.0); HEMATOCRIT 26 % (39-51); HEMOGLOBIN 8.6 g/dL (13.5-17.5); LYMPHOCYTES # (AUTO) 1.9 /CMM (0.8-4.8); LYMPHOCYTES % (AUTO) 14.4 % (20.0-44.0); MEAN CORPUSCULAR HGB CONC 33 g/dl (31.0-36.0); MEAN CORPUSCULAR VOLUME 83 fL (80-96); MONOCYTES % (AUTO) 7.6 % (2.0-12.0); NEUTROPHILS # (AUTO) 9.9 /CMM (1.8-8.9); NEUTROPHILS % (AUTO) 77.3 % (43.0-81.0); PLATELET COUNT (AUTO) 387 /CMM (150-450); RED BLOOD CELL COUNT(AUTO) 3.18 MIL/uL (4.5-6.0); WHITE BLOOD COUNT (AUTO) 12.8 K/uL (4.3-11.0)
[2018-08-11 07:43] LABS: CALCIUM, SERUM 8.2 mg/dL (8.5-10.1); CREATININE 1.2 mg/dL (0.6-1.3); POTASSIUM 3.5 mmol/L (3.5-5.1)
[2018-08-11 08:00] VITALS: BP 104/54
[2018-08-11] MEDS: PREGABALIN 100 MG CAPSULE PO SCH ×2 (08:06→17:17)
[2018-08-11] MEDS: LISINOPRIL (20MG) 20 MG TABLET PO SCH (08:06)
[2018-08-11] MEDS: DOCUSATE SODIUM 100 MG CAPSULE PO SCH ×2 (08:06→17:17)
[2018-08-11] MEDS: TAMSULOSIN 0.4 MG CAP.SR.24H PO SCH (08:07)
[2018-08-11] MEDS: FAMOTIDINE (20 MG) 20 MG TABLET PO SCH ×2 (08:07→20:15)
[2018-08-11] MEDS: IV LR 1000 ML 1,000 ML IV PRN (10:39)
--- NOTE | 2018-08-11 13:00 | NUR ---
RN MS NOTES PT IN BED, ASLEEP, EASY TO AROUSE, ALERT AND ORIENTED, ON DATA MANAGEMENT PUMP, PT KNOWLEDGEABLE WITH DATA MANAGEMENT USE, CALL LIGHT WITHIN REACH, NEEDS ATTENDED, EATING WELL.
[2018-08-11 16:00] VITALS: BP 94/62
[2018-08-11] MEDS: RIVAROXABAN 10 MG TABLET PO SCH (17:22)
--- NOTE | 2018-08-11 18:19 | NUR ---
RN MS NOTES PT IN BED, AWAKE, ALERT AND ORIENTED, PAIN MEDICATION GIVEN FOR PAIN MANAGEMENT, BREATHING PATTERN NORMAL, IV FLUIDS INFUSING WELL, ON COSMETOLOGY EDUCATOR PUMP, SEEN BY PHYSICAL THERAPIST, ABLE TO AMBULATE WITH A WALKER, PM CARE PROVIDED, WITH GOOD APPETITE, CALL LIGHT WITHIN REACH AT ALL TIMES.
[2018-08-11 20:00] VITALS: BP 118/54
--- NOTE | 2018-08-11 20:02 | NUR ---
MS/RN OPENING NOTES RECEIVED PATIENT IN BED, ALERT, ORIENTED X2 ABLE TO VERBALIZE NEEDS, ON PAINMANAGMENT DUE TO PROCEDURE LAST 08/10 FOR LEFT TOTAL HIP REVISION, ON CHENILLE MACHINE OPERATOR PUMP EITH .4 MG EVERY 12 MINUTES AND MAXIMUM EVERY 4 HOURS TO GIVE IN 8 MG. PATIENT REPORTED NEED OF BREAKTHROUGH PAIN. AND INFORMED A ROUTINE PAIN MEDICATION TO BE GIVEN OXYCONTIN 20 MG TOTAL 80 MG (4 TABS). REQUEST TO HAVE IT PAIN IN SEVERE. PATIETN DISTRACT BY WATCHIN TV. ON ROOM AIR. WILL MONITOR. RECEIVED REPORT FROM AM RN FOR ANN. BED LOCKED, CALL LIGHTS RECEIVED, START CHENILLE MACHINE OPERATOR DILAUDID OF 26.8 ML. WILL MONITOR. CALL LIGHTS WITHIN REACH.
[2018-08-12 04:00] VITALS: BP 140/70
[2018-08-12] MEDS: oxyCODONE HCL SR 20MG TAB.SR.12H PO SCH ×2 (04:18→12:17)
--- NOTE | 2018-08-12 04:25 | NUR ---
MS/RN NOTES PATIENT AWAKE WITH REPORTED PAIN LEVEL OF 9/10 IN LEFT LEG, SCHEDULED PAIN MEDICATION OXYCONTIN GIVEN, PATIENT TOLERATED MEDICATION. MENESES CATHETER WAS REMOVED, INFORMED THE NECESITY PER MD ORDER AND PREVER FURTHER COMPLICATION THAT MAY BE HARMFUL, FOLLOWED HAND HYGIENE AND UNIVERSAL PROTOCOL. WILL MONITOR.
[2018-08-12] MEDS: IV LR 1000 ML 1,000 ML IV PRN (04:57)
--- NOTE | 2018-08-12 06:52 | NUR ---
120-1 MS/RN NOTES PATIENT SLEPT INTERMITENLY, ALERT, ORIENTED VERBALIZED NEEDS, ON PAIN MANAGMENT MONITOIRNG, S/P MENESES , BED LOCKED, CALL LIGHTS WITHIN REACH. REPIRATIONS EVEN AND UNLABORED. WILL MONITOR AND ENDORSE TO AM RN FOR ANN.
[2018-08-12 08:00] VITALS: BP 132/57
[2018-08-12] MEDS: DOCUSATE SODIUM 100 MG CAPSULE PO SCH ×2 (10:08→17:37)
[2018-08-12] MEDS: PREGABALIN 100 MG CAPSULE PO SCH ×2 (10:09→17:35)
[2018-08-12] MEDS: TAMSULOSIN 0.4 MG CAP.SR.24H PO SCH (10:10)
[2018-08-12] MEDS: FAMOTIDINE (20 MG) 20 MG TABLET PO SCH (10:10)
[2018-08-12] MEDS: LISINOPRIL (20MG) 20 MG TABLET PO SCH (10:10)
[2018-08-12 11:30] VITALS: BP 132/57
[2018-08-12 12:00] VITALS: BP 132/57
[2018-08-12] MEDS ORDERED: KEY,NONCONTROL,TO KEEP IN PYXI 1 EA MC ONE (13:52)
[2018-08-12 16:00] VITALS: BP 168/78
[2018-08-12] MEDS: oxyCODONE IR immediate release 5 MG PO PRN (17:35)
[2018-08-12] MEDS: RIVAROXABAN 10 MG TABLET PO SCH (17:36)
--- NOTE | 2018-08-12 17:50 | NUR ---
WHEELED OUT PT VIA W/C WITH BELONGINGS, A/A/O TIMES 4, ANXIOUS TO GO HOME
== END 2018-08-12 17:45 | disposition home or self-care (01) | DRG 468 ==
LOC: MEDSG1 08:55 → TELE1 08-10 11:07 → MEDSG1 08-11 10:28
PROC: 0SW909Z Revision of Liner in Right Hip Joint, Open Approach (ICD-10-PCS; principal; 2018-08-10)
PROC: 0SW90JZ Revision of Synthetic Substitute in Right Hip Joint, Open Approach (ICD-10-PCS; 2018-08-10)
DX: T84.021A Dislocation of internal left hip prosthesis, initial encounter (principal); Y79.2 Prosthetic and other implants, materials and accessory orthopedic devices associated with adverse incidents; I10 Essential (primary) hypertension; E78.5 Hyperlipidemia, unspecified; Y92.009 Unspecified place in unspecified non-institutional (private) residence as the place of occurrence of the external cause; Z96.659 Presence of unspecified artificial knee joint; G89.29 Other chronic pain; G62.9 Polyneuropathy, unspecified; D64.9 Anemia, unspecified; M19.90 Unspecified osteoarthritis, unspecified site; Z79.899 Other long term (current) drug therapy
CPT/HCPCS: 36415; 71045-TC; 72170-TC; 73020; 73552; 80048-TC; 80061-TC; 83735-TC; 84100-TC; 84443-TC; 85025-TC; 85730-TC; 86850-TC; 88300-TC; 97116-TC; 97530-TC; A4216; A4217; A6253; A6402; A6403; C9113; G0378; J0690; J1100; J1170; J2250; J2270; J2405; J2704; J2710; J3010; J3490; J7030; J7060; J7120

== ENCOUNTER 2018-09-17 16:19 | Inpatient (IN) | payer MEDICARE, MEDICAID ==
[~2018-09-17] VITALS: Ht 170.2 cm; Wt 90.3 kg
[~2018-09-17 16:19] MED LIST changes: -DOCU-270 PO; -SENN-175 PO
[2018-09-17 21:30] VITALS: BP 141/74
--- NOTE | 2018-09-17 21:30 | NUR ---
RECEIVED PATIENT DIRECT ADMIT FROM [facility] FOR DX LEFT HIP PROSTHESIS DISLOCATION. PATIENT AO X 3, ABLE TO MAKE NEEDS KNOWN. NO ACUTE DISTRESS NOTED. MONITORED FOR PAIN. IV SITE PATENT, INTACT; FLUSHED. CONDOM CATH PATENT, INTACT; DRAINING CLEAR ORANGE URINE. HIP PRECAUTIONS MAINTAINED. SKIN INTACT. SAFETY REMINDERS GIVEN. ON LOW BED WITH BILATERAL UPPER SIDE RAILS UP. CALL ORTIZ WITHIN EASY REACH. WILL CONTINUE TO MONITOR.
[2018-09-17] MEDS ORDERED: NAPR-1009 PO (22:19)
[2018-09-17] MEDS ORDERED: METO-356 PO (22:19)
[2018-09-17] MEDS ORDERED: MAG HYDROX/AL HYDROX/SIMETH 30 ML UDC PO PRN (23:00)
[2018-09-17] MEDS ORDERED: MAGNESIUM HYDROXIDE 30 ML UDC PO PRN (23:00)
[2018-09-17] MEDS ORDERED: ONDANSETRON HCL/PF 4 MG/2 ML VIAL IVP PRN (23:00)
[2018-09-17] MEDS: IV NS 0.9% 1,000 ML IV PRN (23:03)
[2018-09-17] MEDS: PANTOPRAZOLE 40 MG VIAL IV SCH (23:03)
[2018-09-17] MEDS: HYDROMORPHONE INJ 2 MG/ML DISP.SYRIN IV PRN (23:06)
[2018-09-17] MEDS: ZOLPIDEM TARTRATE 5 MG TABLET PO PRN (23:50)
[2018-09-18] MEDS: HYDROMORPHONE INJ 2 MG/ML DISP.SYRIN IV PRN ×5 (03:33→19:12)
--- NOTE | 2018-09-18 06:00 | NUR ---
PATIENT ASLEEP, EASILY AROUSABLE. RESPIRATIONS EVEN. NO SIGNS OF PAIN NOTED. DUE MEDS GIVEN WITH NO ASE NOTED. IVF INFUSING ORDERED. NPO SINCE MIDNIGHT. NEEDS ATTENDED. KEPT CLEAN, DRY, AND COMFORTABLE. SAFETY PRECAUTIONS AND COMFORT MEASURES IN PLACE. WILL GIVE REPORT TO DAY SHIFT FOR CONTINUITY OF CARE.
[2018-09-18 06:32] LABS: BASOPHILS % (AUTO) 0.3 % (0.0-2.0); HEMATOCRIT 34 % (39-51); HEMOGLOBIN 10.9 g/dL (13.5-17.5); LYMPHOCYTES # (AUTO) 1.6 /CMM (0.8-4.8); MEAN CORPUSCULAR HGB CONC 32 g/dl (31.0-36.0); MEAN CORPUSCULAR VOLUME 75 fL (80-96); MONOCYTES # (AUTO) 0.7 /CMM (0.1-1.30); MONOCYTES % (AUTO) 7.4 % (2.0-12.0); NEUTROPHILS # (AUTO) 6.9 /CMM (1.8-8.9); NEUTROPHILS % (AUTO) 74.3 % (43.0-81.0); PLATELET COUNT (AUTO) 345 /CMM (150-450); RED BLOOD CELL COUNT(AUTO) 4.52 MIL/uL (4.5-6.0); WHITE BLOOD COUNT (AUTO) 9.2 K/uL (4.3-11.0)
[2018-09-18 06:47] LABS: CALCIUM, SERUM 8.9 mg/dL (8.5-10.1); CREATININE 0.8 mg/dL (0.6-1.3); PHOSPHORUS 3.8 mg/dL (2.5-4.9); POTASSIUM 4.4 mmol/L (3.5-5.1)
[2018-09-18 08:00] VITALS: BP 140/80
--- NOTE | 2018-09-18 08:00 | NUR ---
MS 2 RN AM NOTES RECEIVED PATIENT AWAKE. RESPIRATIONS EVEN. NO SIGNS OF PAIN NOTED. AM PO MEDS HELD DUE TO NPO.IVF INFUSING WELL ORDERED. WITH C/O LT HIP SEVERE PAIN.DILAUDID 1 MG IV GIVEN FOR PAIN MGT.WILL MONITOR. NPO SINCE MIDNIGHT. NEEDS ATTENDED. KEPT CLEAN, DRY, AND COMFORTABLE. SAFETY PRECAUTIONS AND COMFORT MEASURES IN PLACE. CALL LIGHT WITHIN REACH.
[2018-09-18] MEDS: LISINOPRIL (20MG) 20 MG TABLET PO SCH ×2 (08:18→09:26)
[2018-09-18] MEDS: TAMSULOSIN 0.4 MG CAP.SR.24H PO SCH ×3 (08:18→16:56)
[2018-09-18] MEDS: METOPROLOL SUCCINATE 25 MG TAB.SR.24H PO SCH ×2 (08:19→09:26)
[2018-09-18] MEDS: PANTOPRAZOLE 40 MG VIAL IV SCH (08:23)
[2018-09-18] MEDS ORDERED: PREGABALIN 25 MG CAPSULE PO SCH (09:00)
[2018-09-18] MEDS: PREGABALIN 100 MG CAPSULE PO SCH ×2 (09:26→17:00)
[2018-09-18] MEDS ORDERED: HYDROMORPHONE INJ 2 MG/ML DISP.SYRIN IV PRN (10:00)
[2018-09-18] MEDS ORDERED: oxyCODONE/APAP (5/325 MG) 1 UDTAB TABLET PO PRN (10:00)
[2018-09-18] MEDS: oxyCODONE HCL SR 20MG TAB.SR.12H PO SCH ×2 (13:18→21:00)
[2018-09-18] MEDS: IV NS 0.9% 1,000 ML IV PRN (13:21)
[2018-09-18] MEDS: TIZANIDINE HCL 4 MG TABLET PO PRN ×2 (15:13→19:12)
--- NOTE | 2018-09-18 19:30 | NUR ---
MS YARITZA OPENING NOTES: RECEIVED PT ON ROOM AIR AND IS TOLERATING WELL. NO SOB NOTED. NO S/S OF DISTRESS. FAMILY MEMBER AT BEDSIDE. PT UNDERSTANDS THAT AT MIDNIGHT HE IS TO BE NPO. IV BEING INFUSED WITH IV NS AT 75ML/HR. BED KEPT IN LOW, LOCKED POSITION, AND SIDE RAILS X 2UP. WILL CONTINUE TO MONITOR PT. Addendum: 09/19/18 at 0438 by CINTIA BAIN RN PT ALSO HAS CONDOM CATH AND IS IN PLACE AND DRAINING URINE IN BAG.
[2018-09-18 20:00] VITALS: BP 112/66
--- NOTE | 2018-09-18 20:05 | NUR ---
MS RN CLOSING NOTES Patient comfortable and resting in bed and watching TV with at bedside. A/O x 4. VS stable with no acute distress. Breathing even and unlabored on room air with no respiratory distress. Patient stated tolerable pain level. Pain medication administered at 191. PIV on RAC clean, dry and intact with IVF NS running at 75ml/hr. Condom cath in place and operational. Safety precautions in place. Bed locked and set to lowest position with side rails x 2 up. All needs rendered at this time. Will endorse plan of care to oncoming shift.
[2018-09-18 20:10] VITALS: BP_SYST 112; BP_DIAS 66; BP_DIAS 78
[2018-09-18] MEDS: oxyCODONE IR immediate release 5 MG PO PRN (21:13)
--- NOTE | 2018-09-18 21:15 | NUR ---
MS RN NOTES: PT PREFERS TO HAVE OXY IR 60MG OPPOSED TO SCHEDULED [id number].
[2018-09-18] MEDS: ZOLPIDEM TARTRATE 5 MG TABLET PO PRN (21:52)
--- NOTE | 2018-09-18 21:54 | NUR ---
MS RN NOTES: PT REQUESTING FOR SLEEP AID. PT WAS ADMINISTERED AMBIEN 10MG PO. REMINDED PT THAT HE IS TO BE NPO MIDNIGHT. PT UNDERSTOOD.
[2018-09-19] MEDS: HYDROMORPHONE INJ 2 MG/ML DISP.SYRIN IV PRN ×2 (02:41→06:16)
--- NOTE | 2018-09-19 02:45 | NUR ---
MS RN NOTES: PT COMPLAINING OF 10/10 L HIP PAIN. PT WAS ADMINISTERED DILAUDID 1MG IV. WILL CONTINUE TO MONITOR PT.
[2018-09-19] MEDS: oxyCODONE HCL SR 20MG TAB.SR.12H PO SCH ×3 (04:04→20:08)
--- NOTE | 2018-09-19 06:37 | NUR ---
MS RN NOTES: PT COMPLAINING OF 10/10 PAIN. PT WAS ADMINISTERED DILAUDID 1MG IV. WILL CONTINUE TO MONITOR.
[2018-09-19 06:42] LABS: BASOPHILS % (AUTO) 0.4 % (0.0-2.0); EOSINOPHILS % (AUTO) 1.1 % (0.0-6.0); HEMATOCRIT 32 % (39-51); HEMOGLOBIN 10.3 g/dL (13.5-17.5); LYMPHOCYTES # (AUTO) 1.6 /CMM (0.8-4.8); LYMPHOCYTES % (AUTO) 21.1 % (20.0-44.0); MEAN CORPUSCULAR HGB CONC 33 g/dl (31.0-36.0); MEAN CORPUSCULAR VOLUME 74 fL (80-96); MONOCYTES # (AUTO) 0.6 /CMM (0.1-1.30); MONOCYTES % (AUTO) 8.2 % (2.0-12.0); NEUTROPHILS # (AUTO) 5.2 /CMM (1.8-8.9); NEUTROPHILS % (AUTO) 69.2 % (43.0-81.0); PLATELET COUNT (AUTO) 323 /CMM (150-450); RED BLOOD CELL COUNT(AUTO) 4.23 MIL/uL (4.5-6.0); WHITE BLOOD COUNT (AUTO) 7.6 K/uL (4.3-11.0)
--- NOTE | 2018-09-19 06:56 | NUR ---
MS RN CLOSING NOTES: ALL NEEDS WERE ATTENDED AND ANTICIPATED FOR. PT KEPT CLEAN, DRY, AND COMFORTABLE. L HIP OFFLOADED AT ALL TIMES. PT HAS IV AND IS BEING INFUSED WITH IV NS AT 75ML/HR. PT RESTING AT THIS TIME. PT HAS BEEN NPO SINCE MIDNIGHT. AT BEDSIDE. PROVIDED PT CONTAINER FOR HIS DENTURES HE IS TO GO FOR SX LATER TODAY. CONDOM CATH REMAINS IN PLACE. OUTPUT WAS 600ML. BED KEPT IN LOW, LOCKED POSITION, AND SIDE RAILS X 2UP. WILL ENDORSE TO AM NURSE FOR ANN.
[2018-09-19 07:19] LABS: CALCIUM, SERUM 8.5 mg/dL (8.5-10.1); MAGNESIUM 1.9 mg/dL (1.8-2.4); PHOSPHORUS 3.7 mg/dL (2.5-4.9); POTASSIUM 4.4 mmol/L (3.5-5.1)
--- NOTE | 2018-09-19 07:31 | NUR ---
MS RN NOTES: PER OR, PUT IN ONE UNIT OF BLOOD FOR OR UNDER DR TRENT'S NAME.
[2018-09-19] MEDS: TAMSULOSIN 0.4 MG CAP.SR.24H PO SCH ×2 (07:48→17:10)
[2018-09-19] MEDS: PREGABALIN 100 MG CAPSULE PO SCH ×2 (07:48→17:10)
[2018-09-19 08:00] VITALS: BP 145/87
--- NOTE | 2018-09-19 08:00 | NUR ---
MS RN AM NOTES: RECEIVED PT ALERT AND ORIENTED X4.KEPT CLEAN, DRY, AND COMFORTABLE. L HIP OFFLOADED AT ALL TIMES. WITH IVF NS AT 75ML/HR INFUSING WELL.PT HAS BEEN NPO SINCE MIDNIGHT. AT BEDSIDE. DENIES ANY PAIN OR DISTRESS.PROVIDED PT CONTAINER FOR HIS DENTURES HE IS TO GO FOR SX LATER TODAY. CONDOM CATH REMAINS IN PLACE DRAINING CLEAN YELLOW URINE OUTPUT.BED KEPT IN LOW, LOCKED POSITION, AND SIDE RAILS X 2UP. CALL LIGHT PLACED WITHIN REACH.
[2018-09-19] MEDS: PANTOPRAZOLE 40 MG VIAL IV SCH (08:57)
[2018-09-19] MEDS: LISINOPRIL (20MG) 20 MG TABLET PO SCH (08:58)
[2018-09-19] MEDS: METOPROLOL SUCCINATE 25 MG TAB.SR.24H PO SCH (08:58)
[2018-09-19] MEDS ORDERED: BACITRACIN 50000 UNITS/VIAL ONE (09:08)
[2018-09-19] MEDS ORDERED: MORPHINE SULFATE/PF 10 MG/10ML (1MG/ML) AMPUL ONE (09:11)
[2018-09-19] MEDS ORDERED: SCOPOLAMINE HBR 1 EA PATCH.TD72 TD ONE (09:12)
[2018-09-19] MEDS ORDERED: FENTANYL PF 100MCG/2ML AMPUL ONE ×2 (09:12→12:04)
[2018-09-19] MEDS ORDERED: MIDAZOLAM HCL 2 MG/2ML VIAL ONE (09:12)
[2018-09-19] MEDS ORDERED: BUPIVACAINE 0.75% DEXT-PF 2 ML AMPUL ONE (09:13)
[2018-09-19] MEDS ORDERED: TRANEXAMIC ACID 3,000 MG in SODIUM CHLORIDE IRRIG SOLUTION 70 ML IR ONE (09:30)
[2018-09-19] MEDS ORDERED: HYDROMORPHONE INJ 2 MG/ML DISP.SYRIN ONE (11:45)
[2018-09-19] MEDS ORDERED: SENOKOT 8.6 MG TABLET PO PRN (12:30)
[2018-09-19] MEDS ORDERED: AMBIEN 5 MG TABLET PO PRN (12:30)
[2018-09-19] MEDS ORDERED: DULCOLAX 10 MG/SUPP.RECT RC PRN (12:30)
[2018-09-19] MEDS ORDERED: COLACE 250 MG CAPSULE PO PRN (12:30)
[2018-09-19 12:50] VITALS: BP 128/69
--- NOTE | 2018-09-19 12:50 | NUR ---
RECEIVED PT FROM O.R. S/P REVISION OF LEFT TOTAL HIP ARTHROPLASTY.PT IS ALERT AND AWAKE,CALM AND IS C/O SEVERE PAIN OF LEFT HIP.COORDINATED WITH DR ESTEVES FOR PAIN MGT, COORDINATED WITH P.T. FOR EVAL AND CLARIFIED WT BEARING TO ENRIQUE PATEL WITH ORDER OF WBAT, POSTERIOR HIP PRECAUTIONS. TAVON LEONE MADE AWARE. WITH ABDUCTOR PILLOW BETWEEN THE LEGS.WITH.PT REFUSED P.T. EVAL FOR TODAY AND WILL COME BACK TOMORROW.WITH ONGOIGN IVF INFUSING WELL TO LT AC. AT BEDSIDE.DENIES ANY DISTRESS.CALL LIGHT PLACED WITHIN REACH.WILL CONTINUE TO MONITOR.
--- NOTE | 2018-09-19 12:51 | NUR ---
PT WAS C/O SEVERE LT HIP PAIN S/P LT HIP DARLIN. PULLED OUT OXYCONTIN SR 80 MG PILLS (ROUTINE-AROUND THE CLOCK MED)AND SCANNED BUT PT REFUSED-HELD THE OXYCONTIN SR 80 MG PO PILLS TILL ITS DUE AT 2PM ORDERED.DR ESTEVES GAVE NEW SCHEDULED ORDERS. AT 1:20 PM,TO ADMINISTER DILAUDID 1 MG SQ, AT 2 PM ADMINISTER OXYCONTIN SR 80 MG PO, AT 3 PM TO ADMINISTER OXYCODONE 60 MG PO AND AT 4 PM TO ADMINISTER ZANAFLEX.PUT FISH AND GAME CLUB MANAGER DILAUDID DANE.
--- NOTE | 2018-09-19 13:00 | NUR ---
PT IS CLOSELY MONITORED /ASSESSED FOR LOC AND PAIN LEVEL DUE S/P SPINAL NARCOTICS.PT REMAINS ALERT,AWAKE. AND VERBALLY RESPONSIVE.ABLE TO MOVE HIS NOAH TOES WNL.WITH GOOD PEDAL PULSES,WARM TO TOUCH AND WITH GOOD CAPILLARY REFILL.
[2018-09-19] MEDS ORDERED: HYDROMORPHONE INJ 2 MG/ML DISP.SYRIN SQ PRN (13:19)
--- NOTE | 2018-09-19 13:20 | NUR ---
DR ESTEVES CALLED WITH MEDICATION ORDER SCHEDULE GIVEN (SEE THE T.O )IN THE CHART.WILL ADMINISTER ORDERED.
[2018-09-19] MEDS ORDERED: NALOXONE HCL 0.4 MG/ML AMPUL IV PRN (13:30)
[2018-09-19] MEDS: IV LR 1000 ML 1,000 ML IV PRN (14:44)
--- NOTE | 2018-09-19 14:57 | NUR ---
SPOKE TO JULES GUILLEN TO ARRANGE WITH [facility] PLACEMENT ORDERED BY DR TRENT. JULES GUILLEN STATED THAT THE PT REFUSED TO GO [facility] SINCE HE'S BEEN THERE BEFORE.
[2018-09-19] MEDS: oxyCODONE IR immediate release 5 MG PO PRN (15:00)
[2018-09-19] MEDS: HYDROMORPHONE MDV 30 MG in IV NS 0.9% 15 ML, PCA TOTAL VOLUME 1 BAG IV PRN ×3 (15:17)
[2018-09-19 16:00] VITALS: BP 141/81
[2018-09-19 16:01] LABS: APPEARANCE,URINE SL CLOUDY (CLEAR); BILIRUBIN,URINE NEGATIVE (NEGATIVE); BLOOD, URINE NEGATIVE Ery/uL (NEGATIVE); COLOR,URINE DARK YELLO (YELLOW); KETONES,URINE NEGATIVE (NEGATIVE); LEUKOCYTE ESTERASE ,URINE NEGATIVE (NEGATIVE); NITRITE, URINE POSITIVE (NEGATIVE); PH,URINE 6.5 (5.0-8.0); PROTEIN,URINE NEGATIVE (NEGATIVE); UGLUCOSE NEGATIVE (NEGATIVE)
[2018-09-19] MEDS: TIZANIDINE HCL 4 MG TABLET PO PRN (16:05)
[2018-09-19 16:14] LABS: BACTERIA,URINE Many /HPF (None Seen); RBC,URINE 0-2 /HPF (0-2)
[2018-09-19 16:15] LABS: CALCIUM OXALATE CRYSTALS,UR Moderate /HPF (None Seen); SQUAMOUS EPITHELIAL CELL,UR Moderate /HPF (None Seen); URINE AMORPHOUS URATE Moderate /HPF (None Seen)
--- NOTE | 2018-09-19 17:00 | NUR ---
PT REMAINS ALERT,AWAKE. AND VERBALLY RESPONSIVE.ABLE TO MOVE HIS NOAH TOES WNL.WITH GOOD PEDAL PULSES,WARM TO TOUCH AND WITH GOOD CAPILLARY REFILL.PT CALM IN BED WITH ONGOING JEEP DRIVER DILAUDID 0.4 MG BOLUS (SELF-DOSED) Q 12 MINS. CHANGED CONDOM CATHETER TO A NEW ONE DUE TO LEAK.CHANGED ALL LINENS AND SHEETS.MADE COMFORTABLE.PT FELT RELIEVED.WILL MONITOR
[2018-09-19] MEDS: ANCEF 1 G in IV D5W 50 ML IV SCH (17:38)
--- NOTE | 2018-09-19 19:49 | NUR ---
RN MS OPENING NOTES RECEIVED PATIENT IN BED AWAKE, ALERT AND ORIENTED X3, VERBALLY RESPONSIVE, ABLE TO MAKE NEEDS KNOWN. BREATHING EVEN AND UNLABORED. NO SOB NOTED. TOLERATING ROOM AIR. WITH COMPLAINTS OF PAIN S/P LEFT HIP TOTAL ARTHROPLASTY, BUT CONTROLLED WITH COMMITTEE MEMBER PUMP. NO FACIAL GRIMACING. IV ON LEFT AC G#20 INTACT AND PATENT WITH IVF INFUSING. SKIN DRY AND WARM TO TOUCH. AFEBRILE. PATIENT NOTED WITH CONDOM CATHETER INTACT AND DRAINING. NO SIGNS OF LEAKAGE. ALL OTHER NEEDS MET. SAFETY MEASURES IN PLACE. CALL LIGHT WITHIN REACH. WILL CONTINUE TO MONITOR.
[2018-09-19 20:00] VITALS: BP 112/68
[2018-09-19] MEDS: oxyCODONE HCL SR 40MG TAB.SR.12H PO SCH (20:23)
--- NOTE | 2018-09-19 20:26 | NUR ---
RN MS NOTES NON ADMINISTERED NEW OXYCODONE 80MG PO. PATIENT ALREADY RECEIVED MEDICATION. NEW ORDER WAS INPUT BY PHARMACY DUE TO LOW STOCK OF THE OXYCODONE 20MG.
[2018-09-19] MEDS: ACETAMINOPHEN 325 MG TABLET PO PRN (20:53)
[2018-09-19 23:15] VITALS: BP 143/85
--- NOTE | 2018-09-19 23:24 | NUR ---
RN MS NOTES PATIENT'S HEART RATE IN THE BEGINNING OF SHIFT IS 133. BP 112/68. TEMP 100.0. PATIENT WAS THEN GIVEN HIS SCHEDULED PAIN MEDICATIONS AND PATIENT ALSO ON SEISMOGRAPH CHIEF PUMP. TYLENOL ALSO GIVEN FOR ELEVATED TEMP. RECHECKED VITALS AT 2315 FOLLOWS: BP 143/85, HR 122, SP02 95% RA, AND 100.3F. PATIENT IS RESTING AND COMFORTABLE IN BED. NOT IN ANY DISTRESS. INFORMED DR. FAVIO TOTH REGARDING THE ELEVATED HR AND TEMP, WITH ORDERS TO GIVE METOPROLOL TARTRATE 25MG PO ONCE. ORDER NOTED AND CARRIED OUT. WILL CONTINUE TO MONITOR.
[2018-09-19] MEDS ORDERED: METOPROLOL TARTRATE 25 MG TABLET PO ONE (23:30)
[2018-09-20] MEDS: ANCEF 1 G in IV D5W 50 ML IV SCH (02:04)
[2018-09-20] MEDS: TIZANIDINE HCL 4 MG TABLET PO PRN (03:35)
[2018-09-20 03:55] VITALS: BP 99/60
[2018-09-20] MEDS: oxyCODONE HCL SR 40MG TAB.SR.12H PO SCH ×4 (05:00→21:47)
[2018-09-20] MEDS: IV LR 1000 ML 1,000 ML IV PRN (05:05)
[2018-09-20] MEDS: oxyCODONE IR immediate release 5 MG PO PRN ×3 (06:09→16:55)
[2018-09-20 06:10] VITALS: BP 108/58
--- NOTE | 2018-09-20 06:30 | NUR ---
RN MS NOTES PATIENT REQUESTED FOR HIS OXYCODONE 60MG IR PRN. BEFORE GIVING MEDICATION, DR. ESTEVES CALLED UNIT. INFORMED DR. ESTEVES THAT PATIENT HAD REFUSED HIS 0500 SCHEDULED OXYCODONE SR 80MG PO AND WOULD JUST LIKE HIS OXYCODONE 60MG PRN MEDICATION. PER DR. ESTEVES, DO NOT GIVE THE PRN MEDICATION AND ADMINISTER THE SCHEDULED OXYCODONE 80MG. ALSO PER DR. ESTEVES, INFORM PATIENT THAT HE HAS TO FOLLOW THE PAIN MEDICATIONS ORDERED TO FOR HIM BY DR. ESTEVES AND IF HE WANTS, HE CAN TAKE THE OXYCODONE 60MG PRN AN HOUR AFTER HE TAKES THE SCHEDULED DOSE. WENT TO PATIENT'S ROOM AND INFORMED HIM OF DR. ESTEVES'S ORDERS. PATIENT LOOKED IRRITATED BUT AGREED TO PLAN. INFORMED PATIENT THAT HE CAN ASK FOR HIS PRN OXYCODONE AN HOUR AFTER HE TAKES THE SCHEDULED DOSE. PATIENT VERBALIZED UNDERSTANDING. OXYCODONE SR 80MG PO SCHEDULED FOR 0500 ADMINISTERED. WILL CONTINUE TO MONITOR.
[2018-09-20 06:33] LABS: CALCIUM, SERUM 7.7 mg/dL (8.5-10.1); CREATININE 1.1 mg/dL (0.6-1.3); MAGNESIUM 1.7 mg/dL (1.8-2.4); PHOSPHORUS 4.1 mg/dL (2.5-4.9); POTASSIUM 4.2 mmol/L (3.5-5.1)
--- NOTE | 2018-09-20 06:45 | NUR ---
RN MS CLOSING NOTES PATIENT RESTING IN BED. EASILY AROUSABLE. NOT IN ANY DISTRESS. CURRENTLY WITH NO COMPLAINTS OF PAIN OR DISCOMFORT. NO FACIAL GRIMACING. PATIENT STILL ON BRAKE COUPLER DINKEY PUMP WITH ORDERED DOSAGES. IV ON LEFT AC #20 INTACT AND PATENT WITH IVF INFUSING. PATIENT'S CONDOM CATH WAS TAKEN OUT AGAIN - 3RD TIME THROUGHOUT SHIFT. DID NOT PUT A NEW ONE - DR. ESTEVES WAS MADE AWARE. ALL OTHER NEEDS MET. SAFETY MEASURES IN PLACE. CALL LIGHT WITHIN REACH. WILL ENDORSE TO ONCOMING NURSE FOR ANN.
[2018-09-20 06:56] LABS: BASOPHILS % (AUTO) 0.4 % (0.0-2.0); EOSINOPHILS % (AUTO) 0.5 % (0.0-6.0); HEMATOCRIT 24 % (39-51); HEMOGLOBIN 7.7 g/dL (13.5-17.5); LYMPHOCYTES # (AUTO) 1.8 /CMM (0.8-4.8); LYMPHOCYTES % (AUTO) 17.8 % (20.0-44.0); MEAN CORPUSCULAR HGB CONC 32 g/dl (31.0-36.0); MEAN CORPUSCULAR VOLUME 76 fL (80-96); MONOCYTES # (AUTO) 0.9 /CMM (0.1-1.30); MONOCYTES % (AUTO) 9.2 % (2.0-12.0); NEUTROPHILS # (AUTO) 7.3 /CMM (1.8-8.9); NEUTROPHILS % (AUTO) 72.1 % (43.0-81.0); PLATELET COUNT (AUTO) 288 /CMM (150-450); RED BLOOD CELL COUNT(AUTO) 3.14 MIL/uL (4.5-6.0); WHITE BLOOD COUNT (AUTO) 10.1 K/uL (4.3-11.0)
[2018-09-20 08:00] VITALS: BP_SYST 105; BP_SYST 131; BP_DIAS 65; BP_DIAS 81
--- NOTE | 2018-09-20 08:00 | NUR ---
MS 2 RN OPENING NOTES RECEIVED PATIENT IN BED AWAKE, ALERT AND ORIENTED X3, VERBALLY RESPONSIVE, ABLE TO MAKE NEEDS KNOWN. BREATHING EVEN AND UNLABORED. NO SOB NOTED. TOLERATING ROOM AIR. WITH COMPLAINTS OF PAIN S/P LEFT HIP TOTAL ARTHROPLASTY, BUT CONTROLLED WITH CLIENT REPORTING ASSOCIATE PUMP. NO FACIAL GRIMACING. IV ON LEFT AC G#20 INTACT AND PATENT WITH IVF INFUSING. SKIN DRY AND WARM TO TOUCH. AFEBRILE. PATIENT NOTED WITH CONDOM CATHETER INTACT AND DRAINING. NO SIGNS OF LEAKAGE. ALL OTHER NEEDS MET. SAFETY MEASURES IN PLACE. CALL LIGHT WITHIN REACH. WILL CONTINUE TO MONITOR.
[2018-09-20] MEDS: PANTOPRAZOLE 40 MG VIAL IV SCH (08:08)
[2018-09-20] MEDS: ASPIRIN 325 MG TABLET PO SCH (08:09)
[2018-09-20] MEDS: TAMSULOSIN 0.4 MG CAP.SR.24H PO SCH ×2 (08:15→16:43)
[2018-09-20] MEDS: PREGABALIN 100 MG CAPSULE PO SCH ×2 (08:15→16:42)
[2018-09-20] MEDS: LISINOPRIL (20MG) 20 MG TABLET PO SCH (08:16)
[2018-09-20] MEDS: METOPROLOL SUCCINATE 25 MG TAB.SR.24H PO SCH (08:17)
[2018-09-20] MEDS: Magnesium 1GM/D5W 100ML PREMIX 100 ML IV SCH ×2 (11:19→12:44)
--- NOTE | 2018-09-20 13:37 | NUR ---
DURING P.T. TX ,PT WAS SITTING ON THE EDGE OF THE BED AND THE PT STARTED BLEEDING WITH FRESH BLOOD ON THE SURGICAL INCISION (DEE) SITE. DEE REMAIN INTACT.APPLIED PRESSURE DRESSING AND ICE PACKS ON THE SURGICAL SITE. KEPT CLEAN AND DRY. ENRIQUE RODRIGUEZ AND DR MASSEY (HOSPITALIST).
--- NOTE | 2018-09-20 13:39 | NUR ---
DR MARTIN RETURNED CALL AND MADE AWARE WITH NO NEW ORDER BUT TO HOLD ANY BLOOD THINNER WHEREIN PT HAS ASPIRIN WHICH PT TOOK ALREADY IN AM. INFORMED OF THE LOW HGB/HCT 7.7/ 24.NO NEW ORDERS AT THIS TIME. ENRIQUE PATEL RETURNED CALL AND MADE AWARE AND WILL SEE PT SOON.
--- NOTE | 2018-09-20 13:45 | NUR ---
PT'S LT HIP SURGICAL INCISION SITE STOPPED BLEEDING. NEW WOUND DRESSINGS REMAINS CLEAN AND DRY, PLACED NEW ABDUCTOR PILLOW BETWEEN THE LEGS DUE TO SOILAGE. DENIES ANY PAIN OR DISTRESS. WILL CONTINUE TO MONITOR. CALL LIGHT PLACED WITHIN REACH.
--- NOTE | 2018-09-20 13:54 | NUR ---
AMANDAORTHO STONE DERRICKMAN AND RIGGER CAME RO SEE THE PT.
[2018-09-20 16:00] VITALS: BP 116/62
--- NOTE | 2018-09-20 16:00 | NUR ---
dressing noted saturated . Dressing changed
[2018-09-20] MEDS: ACETAMINOPHEN 325 MG TABLET PO PRN (16:43)
[2018-09-20] MEDS: HYDROMORPHONE MDV 30 MG in IV NS 0.9% 15 ML, PCA TOTAL VOLUME 1 BAG IV PRN ×3 (17:52)
[2018-09-20] MEDS ORDERED: KEY,NONCONTROL,TO KEEP IN PYXI 1 EA MC ONE (18:01)
--- NOTE | 2018-09-20 19:30 | NUR ---
RECEIVED PATIENT IN BED AWAKE. AO X 3, ABLE TO MAKE NEEDS KNOWN. NO ACUTE DISTRESS NOTED. MONITORED FOR PAIN. IV SITE PATENT, INTACT; IVF INFUSING ORDERED. EMERGENCY PHYSICIAN WITH DILAUDID ONGOING; SETTING REVIEWED WITH DAY SHIFT NURSE. SAFETY REMINDERS GIVEN. ON LOW BED WITH BILATERAL UPPER SIDE RAILS UP. CALL ORTIZ WITHIN EASY REACH. WILL CONTINUE TO MONITOR.
[2018-09-20 20:00] VITALS: BP 102/54
[2018-09-21] MEDS: oxyCODONE HCL SR 40MG TAB.SR.12H PO SCH ×2 (04:08→12:17)
--- NOTE | 2018-09-21 06:00 | NUR ---
PATIENT ASLEEP, EASILY AROUSABLE. RESPIRATIONS EVEN. NO SIGNS OF PAIN NOTED. DUE MEDS GIVEN WITH NO ASE NOTED. NEEDS ATTENDED. KEPT CLEAN, DRY AND COMFORTABLE. WILL GIVE REPORT TO DAY SHIFT FOR CONTINUITY OF CARE.
[2018-09-21] MEDS: oxyCODONE IR immediate release 5 MG PO PRN (06:21)
[2018-09-21 06:23] LABS: BASOPHILS % (AUTO) 0.3 % (0.0-2.0); EOSINOPHILS % (AUTO) 1.4 % (0.0-6.0); HEMATOCRIT 24 % (39-51); HEMOGLOBIN 7.8 g/dL (13.5-17.5); LYMPHOCYTES # (AUTO) 1.6 /CMM (0.8-4.8); LYMPHOCYTES % (AUTO) 16.3 % (20.0-44.0); MEAN CORPUSCULAR HGB CONC 33 g/dl (31.0-36.0); MEAN CORPUSCULAR VOLUME 75 fL (80-96); MONOCYTES # (AUTO) 0.6 /CMM (0.1-1.30); MONOCYTES % (AUTO) 6.5 % (2.0-12.0); NEUTROPHILS # (AUTO) 7.3 /CMM (1.8-8.9); NEUTROPHILS % (AUTO) 75.5 % (43.0-81.0); PLATELET COUNT (AUTO) 276 /CMM (150-450); RED BLOOD CELL COUNT(AUTO) 3.21 MIL/uL (4.5-6.0); WHITE BLOOD COUNT (AUTO) 9.7 K/uL (4.3-11.0)
[2018-09-21 06:39] LABS: CREATININE 1.1 mg/dL (0.6-1.3); MAGNESIUM 2.1 mg/dL (1.8-2.4); PHOSPHORUS 2.8 mg/dL (2.5-4.9); POTASSIUM 3.9 mmol/L (3.5-5.1)
[2018-09-21] MEDS ORDERED: PANTOPRAZOLE 40 MG TABLET.DR PO SCH (07:30)
[2018-09-21 08:00] VITALS: BP 126/63
[2018-09-21] MEDS ORDERED: OXYCODONE HCL 40 MG PO (08:54)
[2018-09-21] MEDS ORDERED: ASPI-992 PO (08:54)
[2018-09-21] MEDS: PREGABALIN 100 MG CAPSULE PO SCH (08:54)
[2018-09-21] MEDS ORDERED: DOCU-141 PO (08:54)
[2018-09-21 08:55] VITALS: BP 126/63
[2018-09-21] MEDS: TAMSULOSIN 0.4 MG CAP.SR.24H PO SCH (08:55)
[2018-09-21] MEDS: LISINOPRIL (20MG) 20 MG TABLET PO SCH (08:55)
[2018-09-21] MEDS: METOPROLOL SUCCINATE 25 MG TAB.SR.24H PO SCH (08:55)
[2018-09-21] MEDS: ASPIRIN 325 MG TABLET PO SCH (09:00)
--- NOTE | 2018-09-21 09:30 | NUR ---
Shakir at bedside : dressing changed , teaching provided
--- NOTE | 2018-09-21 12:15 | NUR ---
PATIENT CLEARED FOR D/C BY MD TO HOME. PATIENT ALERT AND ORIENTED X4 , VS ARE STABLE AND AT BASELINE, AFEBRILE. NO DISTRESS NOTED. PATIENT'S DRESSING CLEAN AND INTACT. PATIENT REFUSED TO TAKE A PICTURE OF SURGICAL INCISION. D/C INSTRUCTIONS AND EDUCATION PROVIDED TO PATIENT; PATIENT VERBALIZED UNDERSTANDING AND STATED HE WILL F/U WITH IN 1-2 WEEKS. PRESCRIPTION PROVIDED TO PATIENT. ALL D/C PAPERS SIGHED BY PATIENT, PATIENT HAS N BELONGING .IV LINE REMOVED, ID WRIST BAND REMOVED. PATIENT SAFELY TRANSFERRED TO [facility] VIA WHEELCHAIR ACCOMPANIED BY IRONWORKER WIRE FENCE ERECTOR AND .
[2018-09-21] MEDS ORDERED: KEY,NONCONTROL,TO KEEP IN PYXI 1 EA MC ONE (14:11)
== END 2018-09-21 12:15 | disposition home health service (06) | DRG 468 ==
LOC: MEDSG2 21:19
PROVIDERS: ADMIT Nurse Practitioner Acute Care; ATTEND Student in an Organized Health Care Education/Training Program
PROC: 0SRB0J9 Replacement of Left Hip Joint with Synthetic Substitute, Cemented, Open Approach (ICD-10-PCS; principal; 2018-09-19)
PROC: 0SPB0JZ Removal of Synthetic Substitute from Left Hip Joint, Open Approach (ICD-10-PCS; 2018-09-19)
DX: T84.021A Dislocation of internal left hip prosthesis, initial encounter (principal); N40.0 Benign prostatic hyperplasia without lower urinary tract symptoms; I10 Essential (primary) hypertension; G89.4 Chronic pain syndrome; E78.5 Hyperlipidemia, unspecified; Z96.659 Presence of unspecified artificial knee joint; Y83.9 Surgical procedure, unspecified as the cause of abnormal reaction of the patient, or of later complication, without mention of misadventure at the time of the procedure; Y92.89 Other specified places as the place of occurrence of the external cause; D64.9 Anemia, unspecified; M54.9 Dorsalgia, unspecified; M19.90 Unspecified osteoarthritis, unspecified site
CPT/HCPCS: 36415; 71045-TC; 73502; 80048-TC; 80061-TC; 81000-TC; 83735-TC; 84100-TC; 85025-TC; 85610-TC; 86850-TC; 86921-TC; 87081-TC; 87086-TC; 87186-TC; 97110-TC; 97116-TC; 97530-TC; A4216; A4217; A4349; A6402; A6403; C9113; G0378; J0690; J1100; J1170; J2250; J2274; J2704; J3010; J3475; J3490; J7030; J7040; J7060; J7120